=== PATIENT | male | born 1950 | race Caucasian/White ===

== ENCOUNTER 2017-01-27 01:39 | Emergency (ER) | payer BC ==
[2017-01-27 01:56] VITALS: BP 160/99
--- NOTE | 2017-01-27 02:10 | EDM.PDOC ---
ED HPI GENERAL MEDICAL PROBLEM - General Chief Complaint: Bite:Animal, Insect Stated Complaint: TICK BITE Time Seen by Provider: 01/27/17 02:05 Source of Information: Reports: Patient History Limitations: Reports: No Limitations - History of Present Illness INITIAL COMMENTS - FREE TEXT/NARRATIVE: pt has a tick bite on his rt lower leg. Onset: Gradual Duration: Hour(s): Location: Reports: Lower Extremity, Right Associated Symptoms: Reports: No Other Symptoms - Related Data Allergies Allergy/AdvReac Type Severity Reaction Status Date / Time No Known Allergies Allergy Verified 01/27/17 01:49 Home Meds: Home Meds Omeprazole [Omeprazole] 20 mg PO DAILY 07/01/15 [History] buPROPion HCl [Wellbutrin Xl] 150 mg PO BID 07/01/15 [History] Past Medical History Genitourinary History: Reports: Other (See Below) Other Genitourinary History: ED - Infectious Disease History Infectious Disease History: Reports: Chicken Pox, Measles, Mumps - Past Surgical History Other Musculoskeletal Surgeries/Procedures:: cortisone shots in back Social & Family History - Tobacco Use Smoking Status *Q: Current Every Day Smoker Years of Tobacco use: 40 Packs/Tins Daily: 1 Used Tobacco, but Quit: No Second Hand Smoke Exposure: No - Caffeine Use Caffeine Use: Reports: Soda - Alcohol Use Days Per Week of Alcohol Use: 7 Number of Drinks Per Day: 2 Total Drinks Per Week: 14 - Recreational Drug Use Recreational Drug Use: No ED ROS GENERAL - Review of Systems Review Of Systems: See Below Constitutional: Reports: No Symptoms HEENT: Reports: No Symptoms Respiratory: Reports: No Symptoms Cardiovascular: Reports: No Symptoms Endocrine: Reports: No Symptoms GI/Abdominal: Reports: No Symptoms : Reports: No Symptoms Musculoskeletal: Reports: Other (pt has a rash on his rt lower leg. It does itch around it. ) ED EXAM, ANIMAL BITE - Physical Exam Exam: See Below Text/Narrative:: a regular tick was removed from his rt lower leg. This now has a red rash around it that is very itchy. Exam Limited By: No Limitations General Appearance: Alert, Anxious Ears: Normal TMs Nose: Normal Inspection Throat/Mouth: Normal Inspection Head: Atraumatic Neck: Normal Inspection Respiratory/Chest: No Respiratory Distress Cardiovascular: Regular Rate, Rhythm Skin Exam: Other ( pt has a tick bite with a red itchy rash around the site) Course - Vital Signs Last Recorded V/S: Last Vital Signs Temp 35.7 C 01/27/17 01:51 Pulse 104 H 01/27/17 01:51 Resp 16 01/27/17 01:51 BP 160/99 H 01/27/17 01:51 Pulse Ox 97 01/27/17 01:51 Departure - Departure Time of Disposition: 02:08 Disposition: Home, Self-Care 01 Condition: Fair Clinical Impression: Tick bite - Discharge Information Forms: ED Department Discharge Care Plan Goals: doxycyline 100mg bid for 5 days, kenalog cream apply to the rash
== END 2017-01-27 02:20 | disposition home or self-care (01) ==
LOC: JP.ED 01:39
DX: S80.861A Insect bite (nonvenomous), right lower leg, initial encounter (principal); F17.210 Nicotine dependence, cigarettes, uncomplicated; Z79.899 Other long term (current) drug therapy; W57.XXXA Bitten or stung by nonvenomous insect and other nonvenomous arthropods, initial encounter
CPT/HCPCS: 99283

== ENCOUNTER 2019-11-29 16:45 | Emergency (ER) | payer MEDICARE ==
--- NOTE | 2019-11-29 18:12 | EDM.PDOC ---
ED HPI GENERAL MEDICAL PROBLEM - General Chief Complaint: General Stated Complaint: INCISION INFECTED Time Seen by Provider: 11/29/19 18:00 Source of Information: Reports: Patient, Old Records, RN History Limitations: Reports: No Limitations - History of Present Illness INITIAL COMMENTS - FREE TEXT/NARRATIVE: 69 yo male had an umbilical hernia repaired over a month ago at [facility] and recently did some straining for a constipated stool and now has more bulging around his hernia site. He is not having any pain. He called the clinic today as he wanted someone to look at it and was told to go to the ER. No nausea or vomiting or change of appetite. Onset: Gradual Duration: Day(s):, Getting Worse Location: Reports: Abdomen Quality: Reports: Other (no pain) Severity: Mild Improves with: Reports: Other (lying) Worsens with: Reports: Other (standing or straining) Context: Reports: Other (see HPI) Associated Symptoms: Reports: No Other Symptoms Treatments TRANSMISSION ASSEMBLER: Reports: Other (see below) (none) Abdominal Pain Score (Numeric/FACES): 2 - Related Data Allergies Allergy/AdvReac Type Severity Reaction Status Date / Time No Known Allergies Allergy Verified 11/29/19 17:20 Home Meds: Home Meds Aspirin [Aspirin EC] 325 mg PO DAILY 11/29/19 [History] Omeprazole 20 mg PO DAILY 11/29/19 [History] Potassium Gluconate [Potassium] 99 mg PO DAILY 11/29/19 [History] Sennosides/Docusate Sodium [Senna-Docusate Sodium Tablet] 1 each PO BID [History] Sildenafil [Revatio] 20 mg PO ASDIRECTED PRN 11/29/19 [History] buPROPion HCL [Bupropion HCl Sr] 150 mg PO BID 11/29/19 [History] Past Medical History Cardiovascular History: Reports: Hypertension Gastrointestinal History: Reports: GERD, Other (See Below) Other Gastrointestinal History: umbilical hernia Genitourinary History: Reports: Prostate Disorder, Other (See Below) Other Genitourinary History: ED Psychiatric History: Reports: Addiction, Depression Other Psychiatric History: etoh Oncologic (Cancer) History: Reports: Prostate - Infectious Disease History Infectious Disease History: Reports: Chicken Pox, Measles, Mumps - Past Surgical History GI Surgical History: Reports: Hernia Repair/Other Male Surgical History: Reports: Prostatectomy Other Musculoskeletal Surgeries/Procedures:: cortisone shots in back Social & Family History - Tobacco Use Smoking Status *Q: Current Every Day Smoker Years of Tobacco use: 40 Packs/Tins Daily: 1 - Caffeine Use Caffeine Use: Reports: Soda - Recreational Drug Use Recreational Drug Use: No ED ROS GENERAL - Review of Systems Review Of Systems: See Below Constitutional: Reports: No Symptoms HEENT: Reports: No Symptoms Respiratory: Reports: No Symptoms Cardiovascular: Reports: No Symptoms GI/Abdominal: Reports: Other (bulge of umbilical area). Denies: Abdominal Pain : Reports: No Symptoms Musculoskeletal: Reports: No Symptoms Skin: Reports: No Symptoms Neurological: Reports: No Symptoms ED EXAM, GENERAL - Physical Exam Exam: See Below Exam Limited By: No Limitations General Appearance: Alert, WD/WN, No Apparent Distress Eye Exam: Bilateral Eye: Normal Inspection Ears: Normal External Exam, Normal Canal, Hearing Grossly Normal Ear Exam: Bilateral Ear: Auricle Normal, Canal Normal Nose: Normal Inspection, No Blood Throat/Mouth: Normal Inspection, Normal Lips, Normal Oropharynx, Normal Voice, No Airway Compromise Head: Atraumatic, Normocephalic Neck: Normal Inspection Respiratory/Chest: No Respiratory Distress, Lungs Clear, Normal Breath Sounds, No Accessory Muscle Use Cardiovascular: Regular Rate, Rhythm, No Edema GI/Abdominal: Normal Bowel Sounds, Soft, Non-Tender, No Distention, Hernia ( umbilical) Extremities: Normal Inspection Neurological: Alert, Oriented, CN II-XII Intact, Normal Cognition, No Motor/ Sensory Deficits Psychiatric: Normal Affect, Normal Mood Skin Exam: Warm, Dry, Intact, Normal Color, No Rash, Other (surgical wound well healed.) Course - Vital Signs Last Recorded V/S: Last Vital Signs Temp 36.1 C 11/29/19 17:21 Pulse 125 H 11/29/19 17:21 Resp 16 11/29/19 17:21 BP 149/78 H 11/29/19 17:21 Pulse Ox 97 11/29/19 17:21 Departure - Departure Time of Disposition: 18:19 Disposition: Home, Self-Care 01 Condition: Good Clinical Impression: Umbilical hernia Qualifiers: Obstruction and gangrene presence: without obstruction or gangrene Qualified Code(s): K42.9 - Umbilical hernia without obstruction or gangrene - Discharge Information *PRESCRIPTION DRUG MONITORING PROGRAM REVIEWED*: No *COPY OF PRESCRIPTION DRUG MONITORING REPORT IN PATIENT MARITZA: No Referrals: Sherif Gonzalez MD [Primary Care Provider] - Additional Instructions: Keep stool soft with ample fluids and fiber to prevent straining. Avoid heavy lifting. Discuss your recurrent hernia with your surgeon, expect you will have to live with this until after this COVID-19 issue is resolved. Return for abdominal pain with vomiting. Sepsis Event Note - Evaluation Sepsis Screening Result: No Definite Risk - Focused Exam Vital Signs: Vital Signs Temp Pulse Resp BP Pulse Ox 11/29/19 17:21 36.1 C 125 H 16 149/78 H 97 11/29/19 17:06 36.1 C 125 H 16 149/78 H 97 Date Exam was Performed: 11/29/19 Time Exam was Performed: 18:07
[2019-11-29 18:13] VITALS: BP 149/78; PULSE 125
== END 2019-11-29 18:36 | disposition home or self-care (01) ==
LOC: JP.ED 16:45
DX: K42.9 Umbilical hernia without obstruction or gangrene (principal); K21.9 Gastro-esophageal reflux disease without esophagitis; F32.9 Major depressive disorder, single episode, unspecified; F17.210 Nicotine dependence, cigarettes, uncomplicated; Z79.899 Other long term (current) drug therapy
CPT/HCPCS: 99282; 99283

== ENCOUNTER 2019-12-07 06:29 | Day surgery (SDC) | payer MEDICARE ==
[2019-12-07] MEDS ORDERED: Bupivacaine 0.5%/EPINEPHrine 1:200,000 50 ML MDV ONE (06:30)
[2019-12-07] MEDS ORDERED: Acetaminophen 500 MG Tab PO ONE (07:00)
[2019-12-07] MEDS ORDERED: Propofol 200 MG/20 ML SDV ONE (07:01)
[2019-12-07] MEDS ORDERED: Rocuronium 50 MG/5 ML Vial ONE (07:01)
[2019-12-07] MEDS ORDERED: Dexamethasone 4 MG/ML SDV ONE (07:01)
[2019-12-07] MEDS ORDERED: Neostigmine Methylsulfate 1 MG/ML 5 ML Syringe ONE (07:01)
[2019-12-07] MEDS ORDERED: Succinylcholine 200 MG/10 ML MDV ONE (07:01)
[2019-12-07] MEDS ORDERED: Glycopyrrolate 0.2 MG/ML 5 ML MDV ONE (07:01)
[2019-12-07] MEDS ORDERED: fentaNYL 250 MCG/5 ML SDV ONE (07:01)
[2019-12-07] MEDS ORDERED: Ondansetron 4 MG/2 ML SDV ONE (07:01)
[2019-12-07] MEDS ORDERED: ceFAZolin 2 GM in Premix Bag 1 BAG IV ONE (07:15)
[2019-12-07] MEDS ORDERED: Dextrose 5%-Lactated Ringers 1,000 ML IV SCH (07:15)
[2019-12-07] MEDS ORDERED: Albuterol/Ipratropium 3.0-0.5 MG/3 ML Neb Soln NEB ONE (07:50)
[2019-12-07] MEDS ORDERED: Sugammadex Sodium 200 MG/2 ML VIAL ONE (09:24)
[2019-12-07] MEDS ORDERED: Sulfamethoxazole/Trimethoprim 800-160 MG Tab PO ONE (10:20)
[2019-12-07 13:50] VITALS: BP 130/73; PULSE 92
--- NOTE | 2019-12-10 11:19 | CR ---
CHEST: 2 view CLINICAL HISTORY:Smoker, preop COMPARISON:None FINDINGS: The heart size, pulmonary vascularity and hilar structures are normal. No infiltrate effusion or pneumothorax is seen. There are atherosclerotic changes in the aorta. IMPRESSION: No acute cardiopulmonary process.
--- NOTE | 2019-12-19 16:18 | OR ---
DATE OF PROCEDURE: 12/07/2019 SURGEON: Branden Linares MD PREOPERATIVE DIAGNOSIS: Recurrent incisional hernia with intermittent drainage of intraperitoneal fluid. POSTOPERATIVE DIAGNOSES: 1. Incarcerated recurrent incisional hernia. 2. Inflammatory intraabdominal fluid collection extending into hernia sac. OPERATIVE PROCEDURE: Exploration of abdominal wall and underlying intraabdominal space with: 1. Drainage of inflammatory intraabdominal fluid collection extending into hernia (40664). 2. Repair of recurrent incarcerated incisional hernia (71735). ANESTHESIA: General. RITUAL CIRCUMCISER: Naya Zaragoza PA-C INDICATIONS FOR PROCEDURE: This is a 69-year-old male presenting with a recurrent hernia and this is located in the supraumbilical area. The hernia had been emergently repaired at the time of robotic prostatectomy and now has recurred. This has resulted in quite a bit of fluid accumulation within the hernia and has had at least on two occasions spontaneous drainage of fluid from that area and the skin is quite excoriated and now the plan is to proceed with exploration of the area. We will excise the excoriated skin and then repair the hernia as indicated. This is a case that we would likely not use any mesh due to there probably being some underlying contamination of the hernia site based on the history and appearance of the overlying skin. Potential risks of the procedure including bleeding, infection, recurrence of the hernia were all reviewed, and the patient wishes to proceed. DETAILS OF PROCEDURE: The patient was taken to the operating room and placed in a supine position. After general endotracheal anesthesia was induced, the abdomen was prepped and draped. Elliptical incision with vertical orientation was then made in the supraumbilical area excising the excoriated skin. As one entered the hernia sac, quite a bit of fluid was present. This contained some incarcerated omentum within it as well. A portion of this omentum was excised and the base was tied off with a 3-0 Vicryl suture ligature. The fluid itself was somewhat cloudy and there was an obvious element of peritonitis located within the hernia sac as we extended from the intraabdominal location into the area of herniation. The hernia sac was then excised. Cultures of the fluid had been obtained at that point as well, and once the hernia sac was excised and the omentum partially removed as noted above, the area was irrigated with a meropenem and Zyvox containing saline solution. A primary fascial closure with a transverse orientation was then accomplished with interrupted sutures of 0 Vicryl stitch. Once all sutures were placed, these were then tied. This appeared satisfactorily close off the hernia at the fascia level. Subcutaneous tissue was then approximated with 2 layers of 3-0 and 4-0 Vicryl stitch deep and then shaye for the skin. Bilateral transversus abdominis plane blocks were then placed, and the patient taken to the recovery room in satisfactory condition. Physician sales assistant institutional sales, Naya Zaragoza, played an essential role in assisting in this case helping to position the patient, retract structures as needed, as well as suturing and cutting sutures when indicated. Her presence improved patient safety and decreased the operative time. Branden Linares MD /[id number]
== END 2019-12-07 11:30 | disposition home or self-care (01) ==
LOC: JP.SDS 06:29
PROVIDERS: ATTEND Surgery
DX: K43.0 Incisional hernia with obstruction, without gangrene (principal); K65.9 Peritonitis, unspecified; K21.9 Gastro-esophageal reflux disease without esophagitis; I73.9 Peripheral vascular disease, unspecified; E87.1 Hypo-osmolality and hyponatremia; N52.9 Male erectile dysfunction, unspecified; L30.9 Dermatitis, unspecified; I10 Essential (primary) hypertension; F32.9 Major depressive disorder, single episode, unspecified; R25.1 Tremor, unspecified; D64.9 Anemia, unspecified; F10.11 Alcohol abuse, in remission; F17.210 Nicotine dependence, cigarettes, uncomplicated; Z79.82 Long term (current) use of aspirin; Z79.899 Other long term (current) drug therapy; Z98.890 Other specified postprocedural states; Z85.46 Personal history of malignant neoplasm of prostate; Z90.79 Acquired absence of other genital organ(s)
CPT/HCPCS: 49020; 49566; 71046; 87070; 87075; 87205; 88302; 94640; A9270; J0171; J0330; J0690; J1100; J2405; J2704; J2710; J2795; J3010; J3490; J7050; J7121; J7620-GY

== ENCOUNTER 2020-03-11 06:59 | Day surgery (SDC) | payer MEDICARE ==
[~2020-03-11 06:59] MED LIST: Bupivacaine 0.5%/EPINEPHrine 1:200,000 50 ML MDV ONE; Meropenem 500 MG SDV ONE
[2020-03-11] MEDS ORDERED: ceFAZolin 2 GM in Premix Bag 1 BAG IV ONE (07:45)
[2020-03-11] MEDS ORDERED: Dextrose 5%-Lactated Ringers 1,000 ML IV SCH (07:45)
[2020-03-11] MEDS ORDERED: Succinylcholine 200 MG/10 ML MDV ONE (08:20)
[2020-03-11] MEDS ORDERED: Propofol 200 MG/20 ML SDV ONE (08:20)
[2020-03-11] MEDS ORDERED: Rocuronium 50 MG/5 ML Vial ONE (08:20)
[2020-03-11] MEDS ORDERED: Dexamethasone 4 MG/ML SDV ONE (08:20)
[2020-03-11] MEDS ORDERED: Neostigmine Methylsulfate 1 MG/ML 5 ML Syringe ONE (08:20)
[2020-03-11] MEDS ORDERED: Ondansetron 4 MG/2 ML SDV ONE (08:20)
[2020-03-11] MEDS ORDERED: Glycopyrrolate 0.2 MG/ML 5 ML MDV ONE (08:20)
[2020-03-11] MEDS ORDERED: fentaNYL 250 MCG/5 ML SDV ONE ×2 (08:21→08:57)
[2020-03-11] MEDS ORDERED: Lidocaine 2% Jelly 10 ML Urojet ONE (08:56)
[2020-03-11] MEDS ORDERED: Lactated Ringers 1,000 ML ONE (09:28)
[2020-03-11] MEDS ORDERED: hydrOXYzine HCL 100 MG/2 ML SDV IM ONE (11:24)
[2020-03-11] MEDS ORDERED: Tamsulosin 0.4 MG Cap.ER PO ONE ×2 (11:30→12:30)
[2020-03-11] MEDS ORDERED: HYDROmorphone 1 MG/ML Syringe IV PRN (12:00)
[2020-03-11] MEDS ORDERED: hydrOXYzine HCL 100 MG/2 ML SDV IM PRN (12:00)
[2020-03-11] MEDS ORDERED: HYDROmorphone 0.5 MG/0.5 ML Syringe IVPUSH PRN (12:00)
[2020-03-11] MEDS: Cyclobenzaprine 10 MG Tab PO PRN (12:27)
[2020-03-11] MEDS: Acetaminophen 325 MG Tab PO SCH ×3 (12:27→23:08)
[2020-03-11] MEDS ORDERED: Ketamine 500 MG/5 ML MDV IV SCH (13:00)
[2020-03-11] MEDS ORDERED: MVI, Adult with Vitamin K 10 ML, Chromium/Copper/Mang/Selen/Zn 1 ML, Thiamine 100 MG in... IV ONE ×4 (13:00)
[2020-03-11] MEDS ORDERED: Ketamine 50 MG in Sodium Chloride 0.9% 49.5 ML IV SCH (13:00)
[2020-03-11] MEDS: Pantoprazole 40 MG Tab.CR PO SCH (14:35)
[2020-03-11] MEDS: ceFAZolin 2 GM in Premix Bag 1 BAG IV SCH ×2 (16:02→23:08)
[2020-03-11] MEDS: oxyCODONE 5 MG Tab PO PRN ×2 (16:33→20:31)
[2020-03-11] MEDS: Naproxen 250 MG Tab PO SCH (17:52)
[2020-03-11] MEDS: buPROPion 150 MG Tab.SR PO SCH (20:31)
[2020-03-11] MEDS ORDERED: Tamsulosin 0.4 MG Cap.ER PO SCH (21:00)
[2020-03-11] MEDS: Dextrose 5%-Lactated Ringers 1,000 ML IV SCH (21:49)
[2020-03-12] MEDS: oxyCODONE 5 MG Tab PO PRN ×3 (02:50→11:05)
[2020-03-12] MEDS: Dextrose 5%-Lactated Ringers 1,000 ML IV SCH (05:07)
[2020-03-12] MEDS: Acetaminophen 325 MG Tab PO SCH ×2 (05:36→11:06)
[2020-03-12] MEDS ORDERED: Furosemide 20 MG/2 ML VIAL IVPUSH ONE (06:43)
[2020-03-12] MEDS: ceFAZolin 2 GM in Premix Bag 1 BAG IV SCH (07:24)
[2020-03-12] MEDS: Naproxen 250 MG Tab PO SCH (07:24)
[2020-03-12] MEDS: Pantoprazole 40 MG Tab.CR PO SCH (07:24)
[2020-03-12] MEDS: buPROPion 150 MG Tab.SR PO SCH (08:33)
[2020-03-12] MEDS ORDERED: Aspirin 325 MG Tab.EC PO SCH (09:00)
[2020-03-12] MEDS: Cyclobenzaprine 10 MG Tab PO PRN (09:34)
--- NOTE | 2020-03-12 10:38 | OR ---
DATE OF PROCEDURE: 03/11/2020 SURGEON: Branden Linares MD PREOPERATIVE DIAGNOSES: 1. Recurrent incisional and umbilical hernia. 2. Newly identified incisional hernia in the right lower quadrant. POSTOPERATIVE DIAGNOSES: 1. Incarcerated recurrent incisional and umbilical hernias. 2. Incarcerated nonrecurrent incisional hernia containing incarcerated cecum. 3. Urethral stricture. OPERATIVE PROCEDURES: 1. Urethral dilation with placement of Carnes catheter (34471, [id number]). 2. Exploratory laparotomy with: a. Repair of incarcerated recurrent incisional hernia with mesh (89427). b. Repair of incarcerated recurrent umbilical hernia with mesh (49044). c. Repair of incarcerated nonrecurrent incisional hernia with mesh (82918). d. Repair of cecum injury secondary to incarceration within right lower quadrant hernia (41622). e. Placement of Vicryl mesh to limit recurrent adhesion formation between pelvic and abdominal wall and underlying viscera (85633). ANESTHESIA: General. OTR REFRIGERATED CDL TRUCK DRIVER: Naya Zaragoza PA-C INDICATIONS FOR PROCEDURE: This is a 69-year-old presenting with a recurrent incisional hernia. This also involves the adjacent umbilicus. He is also noted to have newly identified hernia in the trocar site in the right lower quadrant, which will also be repaired at this time. Mesh repair will be planned. Potential risks including bleeding, infection, injury to underlying viscera, problems with mesh becoming infected or the hernias recurring were all reviewed, and the patient wishes to proceed. DETAILS OF PROCEDURE: The patient was taken to the operating room, and after general endotracheal anesthesia was induced, initially a Carnes catheter attempted to be placed. The patient is status post prostatectomy and even 8-Upper Sorbian Carnes catheter could not initially be placed. Given this, Filiform were then placed until one of these passed into the area of bladder. Over this, the urethral stricture was progressively dilated up to a 14-Upper Sorbian size. This allowed at that point removal of the Filiform dilator and a 10-Upper Sorbian Carnes catheter was able to be passed into the urinary bladder with good flow of urine being confirmed. Of note, after laparoscopic phase of the procedure was initiated, the urinary bladder was inspected and found to be well decompressed. The abdomen was now prepped and draped, and in the left lateral abdomen, a transverse incision was made and peritoneal cavity entered under direct vision with an Optiview trocar, inflated 15 mmHg pressure with CO2. Laparoscope was reinserted. No underlying trocar insertion site injuries were seen. Following this, 5 mm trocar was placed in the left mid abdomen and left upper abdomen and the areas of herniation were identified. The combined umbilical, incisional recurrent hernia, and periumbilical area containing some incarcerated omentum. Of note, the newly identified hernia in the right lower quadrant contained a portion of the cecal wall in a Benavides's type hernia configuration. Additionally, the area of the adherence of the hernia in the right lower quadrant and the cecum were taken down. This was associated with some thinning and chronic injury to the wall of the cecum which was felt best treated by subsequent repair. At that point, then the omental adhesions to the recurrent incisional and umbilical hernias were taken down as well in order to facilitate more stable abdominal wall. Both hernia sites were then closed within with fascial sutures placed in a transverse orientation closing the fascia primarily at both sites. In the right lateral trocar site hernia, then an 11.[address] mesh was placed. A single suture was placed in the middle of the mesh on a polypropylene side after being soaked in antibiotic-containing saline solution and placed into the intraabdominal location, and a small stab wound overlying the hernia was made, and using suture passer, suture was grasped and pulled up thus pulling the mesh up against the abdominal wall and was fixed circumferentially with some absorbable tacking screws. The larger hernia in the periumbilical area was then repaired with a Ventralight ST mesh, in this case with the balloon positioning system, a 20.3 cm grand traverse was selected, and after being soaked in an antibiotic-containing saline solution, placed in an intraabdominal location. This mesh was then pulled up through small stab wound brining up the inflation catheter. The balloon was then inflated, bringing the mesh up against the abdominal wall. This was then fixed with circumferentially with some absorbable tacking screws. Some of these were not fixing well, and given this, some additional titanium tacking screws were placed in this mesh as well to assure adequate fixation, which at that point appeared to be quite good and the balloon was then deflated and removed. Attention was then taken to the cecal area. The cecum was then brought up at the point of injury and that area then stapled across removing a small edge of the cecum at the repair site. This staple line appeared to be intact. There was no gross spillage or contamination evident. The cecal closure was then reinforced with some fibrin sealant along with omentum being placed over it. A 12-inch square Vicryl mesh was then placed underneath the areas of the mesh placement and down to the pelvic and lower abdominal wall to limit recurrent adhesion formation. The trocars were then sequentially removed because of the patient's quite thin abdominal wall. All of the trocar sites including the 5 mm trocar sites were closed with 0 Vicryl fascial stitches and the skin with 4-0 Vicryl skin stitch. Bilateral transversus and abdominis plane blocks had been placed and the incision was anesthetized with 1% lidocaine as well. The patient was taken to the recovery room in satisfactory condition. There were no evident complications. The catheter will be left in place overnight and the patient will be given some Flomax in order to facilitate hopefully in the morning. Physician assistant loan processor, Naya Zaragoza, played an essential role in assisting in this case, helping to position the patient, retract structures as needed, as well as suturing and cutting sutures when indicated. Her presence improved patient safety and decreased operative time. Branden Linares MD /[id number]
[2020-03-12 10:46] VITALS: BP 186/70; PULSE 81
--- NOTE | 2020-03-12 11:37 | DISCH ---
ADMISSION DIAGNOSES: 1. Incarcerated umbilical hernia. 2. Incarcerated incisional hernia. 3. Hypertension. 4. Gastroesophageal reflux disease. 5. History of prostate cancer. 6. Depression. 7. Chronic alcohol use. 8. Peripheral artery disease with claudication. 9. Erectile dysfunction. DISCHARGE DIAGNOSES: 1. Urethral dilatation, 14-Ukrainian with placement of Carnes catheter 10-Ukrainian. 2. Diagnostic laparoscopy with: a. Repair of incarcerated recurrent incisional hernia and repair of periumbilical hernia. b. Repair of cecum injury secondary to incarceration of hernia. c. Placement of Vicryl mesh. POSTOPERATIVE DIAGNOSES: 1. Urethral stricture. 2. Incarcerated recurrent incisional hernia, periumbilical and umbilical hernia. 3. Incarcerated nonrecurrent incisional hernia, right lower quadrant containing incarcerated cecum. Date of procedure: 03/11/2020. Surgeon: Branden Linares. HISTORY: Gabriel Ponce is a 69-year-old male who presented with above chief complaints. After preoperative evaluation and discussion of possible risks and possible complications, he wished to proceed with surgical procedure. HOSPITAL COURSE: Gabriel had his surgery on 03/11/2020. He had no operative complications with the exception of urethral stricture, which made it difficult for the placement of a Carnes catheter. On postoperative day #1, his Carnes catheter was removed. At the time of dictation, he is waiting to void and will be discharged after he voids. His vital signs are stable. Activity good. Pain is well controlled, and he is able to be discharged to home. PHYSICAL EXAMINATION: GENERAL: Gabriel Ponce is a 69-year-old male. Height is 5 feet 8 inches, weight is 174 pounds. BMI is 26. VITAL SIGNS: TPR; 97, 76, 16, blood pressure 158/86. HEENT: Negative. NECK: Supple. HEART: Regular rate and rhythm. LUNGS: Clear. ABDOMEN: Dressings dry and intact. Pressure dressings are over 2 hernia sites. EXTREMITIES: Without peripheral edema. DISPOSITION: Discharged to home. CONDITION: Stable and improving. FOLLOWUP: Followup appointment with Branden Linares MD, at [facility] on 03/19/2020 at 0815. HOME MEDICATIONS: 1. Flomax 0.4 mg at bedtime, #7. 2. Oxycodone 5 mg every 4 hours p.r.n. pain, #42. 3. Tylenol 650 mg every 6 hours p.r.n. pain. He is to resume home medication of: 1. Aspirin 325 mg daily. 2. Multivitamin 1 tablet daily. 3. Naproxen 220 mg oral twice daily. 4. Omeprazole 20 mg oral daily. 5. Potassium gluconate 550 mg oral daily. 6. Senna S 1 twice daily. 7. Revatio 20 mg oral as directed. 8. Bupropion 150 mg twice daily. DIET: After discharge is regular diet, drink 6 to 8 glasses of water a day. ACTIVITY: No lifting greater than 10 pounds for 6 weeks. He is to ambulate 6 times daily inside his home. DISCHARGE INSTRUCTIONS: Dressing, may remove surgical dressing in a.m. and to place pressure dressing, rolled up Kerlix over both hernia sites, may also use a washcloth, and then place abdominal binder over that for 6 weeks. No lifting more than 10 pounds for [address] for 1 [address] and while on pain medication. Notify provider if any fever, increased pain, swelling, redness, drainage, nausea, or vomiting. OTHER INSTRUCTIONS: Use incentive spirometer 10 times every hour while awake for 1 week.
== END 2020-03-12 13:05 | disposition home or self-care (01) ==
LOC: JP.SDS 06:59 → JP.MS 11:00 → JP.SDS 03-12 13:05
PROVIDERS: ATTEND Surgery
DX: K43.0 Incisional hernia with obstruction, without gangrene (principal); K42.0 Umbilical hernia with obstruction, without gangrene; N35.919 Unspecified urethral stricture, male, unspecified site; I10 Essential (primary) hypertension; K21.9 Gastro-esophageal reflux disease without esophagitis; F32.9 Major depressive disorder, single episode, unspecified; I73.9 Peripheral vascular disease, unspecified; N52.9 Male erectile dysfunction, unspecified; Z79.82 Long term (current) use of aspirin; Z72.89 Other problems related to lifestyle; Z79.899 Other long term (current) drug therapy
CPT/HCPCS: 49561; 49566; 49568; 49587; 88305; 94762; A9270; C1713; C1781; J0171; J0330; J0690; J1100; J1170; J1940; J2020; J2185; J2405; J2704; J2710; J2795; J3010; J3410; J3411; J3490; J7050; J7120; J7121

== ENCOUNTER 2020-04-02 12:16 | Inpatient (IN) | payer MEDICARE ==
--- NOTE | 2020-04-02 12:51 | EDM.PDOC ---
ED HPI GENERAL MEDICAL PROBLEM - General Chief Complaint: Neuro Symptoms/Deficits Stated Complaint: VIA TRI Time Seen by Provider: 04/02/20 12:38 Source of Information: Reports: Patient, EMS, Family, RN Notes Reviewed History Limitations: Reports: No Limitations - History of Present Illness INITIAL COMMENTS - FREE TEXT/NARRATIVE: 70-year-old gentleman presents emergency department today with complaint of seizure-like activity. Earlier today he had an event both arms stiffened lasted less than a minute and then there was a period of approximately 15 minutes where he was confused. EMS services were called state he was confused upon arrival however by the time they delivered him to the emergency department he seemed back to his normal state. His significant other did call the ambulance states he had one event like this yesterday. Does admit to consuming large amount of alcohol states around 10 drinks per day of whiskey. States he feels he is back to his normal state at this time. Declines alcohol detox he has had a rule 25 done which he was set up for alcohol treatment but he elected not to follow through with that. - Related Data Allergies Allergy/AdvReac Type Severity Reaction Status Date / Time No Known Allergies Allergy Verified 04/02/20 12:20 Home Meds: Home Meds Aspirin [Aspirin EC] 325 mg PO DAILY 11/29/19 [History] Omeprazole 20 mg PO DAILY 11/29/19 [History] Potassium Gluconate [Potassium] 550 mg PO DAILY 11/29/19 [History] Sennosides/Docusate Sodium [Senna-Docusate Sodium Tablet] 1 each PO BID 11/29/19 [History] Sildenafil [Revatio] 20 mg PO ASDIRECTED PRN 11/29/19 [History] buPROPion HCL [Bupropion HCl Sr] 150 mg PO BID 11/29/19 [History] Multivitamin [Multivitamins] 1 tab PO DAILY 12/07/19 [History] Naproxen Sodium [Aleve] 220 mg PO BID PRN 12/07/19 [History] Acetaminophen [Tylenol] 650 mg PO Q6H tablet 03/12/20 [Rx] Tamsulosin [Flomax] 0.4 mg PO DAILY 04/02/20 [History] Past Medical History HEENT History: Reports: Other (See Below) Other HEENT History: wears reading glasses Cardiovascular History: Reports: Hypertension, Other (See Below) Other Cardiovascular History: peripheral arterial disease with claudication Gastrointestinal History: Reports: GERD, Other (See Below) Other Gastrointestinal History: umbilical hernia Genitourinary History: Reports: Prostate Disorder, Urinary Incontinence, Other (See Below) Other Genitourinary History: ED Musculoskeletal History: Reports: Back Pain, Chronic Neurological History: Reports: Other (See Below) Other Neuro History: tremor Psychiatric History: Reports: Addiction, Depression Other Psychiatric History: etoh Endocrine/Metabolic History: Reports: Hypokalemia Oncologic (Cancer) History: Reports: Prostate Dermatologic History: Reports: Eczema - Infectious Disease History Infectious Disease History: Reports: Chicken Pox, Measles, Mumps, Shingles - Past Surgical History GI Surgical History: Reports: Colonoscopy, Hernia Repair/Other Male Surgical History: Reports: Prostatectomy Other Musculoskeletal Surgeries/Procedures:: cortisone shots in back, right trigger finger release Social & Family History - Tobacco Use Smoking Status *Q: Current Every Day Smoker Years of Tobacco use: 40 Packs/Tins Daily: 1 - Caffeine Use Caffeine Use: Reports: None - Alcohol Use Days Per Week of Alcohol Use: 7 Number of Drinks Per Day: 20 Total Drinks Per Week: 140 - Recreational Drug Use Recreational Drug Use: No ED ROS GENERAL - Review of Systems Review Of Systems: See Below Constitutional: Reports: No Symptoms HEENT: Reports: No Symptoms Respiratory: Reports: No Symptoms Cardiovascular: Reports: No Symptoms GI/Abdominal: Reports: No Symptoms Neurological: Reports: Seizure ED EXAM, NEURO - Physical Exam Exam: See Below Exam Limited By: No Limitations General Appearance: Alert, WD/WN, No Apparent Distress Eye Exam: Bilateral Eye: Normal Inspection Neck: Normal Inspection, Supple, Non-Tender, Full Range of Motion Respiratory/Chest: No Respiratory Distress, Lungs Clear, Normal Breath Sounds, No Accessory Muscle Use, Chest Non-Tender Cardiovascular: Regular Rate, Rhythm, No Murmur GI/Abdominal: Soft, Non-Tender Neurological: Alert, Normal Mood/Affect, Other (Power is 5 x 5 upper and lower extremities) Course - Vital Signs Last Recorded V/S: Last Vital Signs Temp 97.1 F 04/02/20 12:17 Pulse 116 H 04/02/20 13:39 Resp 22 H 04/02/20 13:39 BP 136/76 04/02/20 13:39 Pulse Ox 92 L 04/02/20 13:39 - Orders/Labs/Meds Orders: Active Orders 24 hr Category Date Time Status MVI, Adult with Vitamin K [Infuvite Adult] 10 ml Med 04/02/20 14:15 Active Thiamine [Vitamin B-1] 200 mg Folic Acid 1 mg Magnesium Sulfate [Magnesium Sulfate 50%] 2 gm Dextrose 5%-Lactated Ringers 1,000 ml IV ONETIME Medication Orders Multivitamins/Minerals 10 ml/Thiamine HCl 200 mg/ Folic Acid 1 mg/ Magnesium Sulfate 2 gm/ Dextrose/Lactated Ringer' s 1,016.2 mls @ 500 mls/hr IV ONETIME ONE Stop: 04/02/20 16:16 Last Admin: 04/02/20 14:09 Dose: 500 mls/hr Documented by: BRIE Labs: Laboratory Tests 04/02/20 04/02/20 04/02/20 Range/Units 12:59 12:59 12:59 WBC 9.8 (4.5-11.0) K/uL RBC 4.07 L (4.30-5.90) M/uL Hgb 12.2 (12.0-15.0) g/dL Hct 35.4 L (40.0-54.0) % MCV 87 (80-98) fL MCH 30 (27-31) pg MCHC 35 (32-36) % Plt Count 400 (150-400) K/uL Neut % (Auto) 64 (36-66) % Lymph % (Auto) 16 L (24-44) % [place] % (Auto) 10 H (2-6) % Eos % (Auto) 10 H (2-4) % Baso % (Auto) 1 (0-1) % Sodium 128 L (140-148) mmol/L Potassium 4.1 (3.6-5.2) mmol/L Chloride 93 L (100-108) mmol/L Carbon Dioxide 26 (21-32) mmol/L Anion Gap 13.1 (5.0-14.0) mmol/L BUN 5 L (7-18) mg/dL Creatinine 0.9 (0.8-1.3) mg/dL Est Cr Clr Drug Dosing 76.00 mL/min Estimated GFR (MDRD) > 60 (>60) Glucose 119 H (74-106) mg/dL Lactic Acid (0.4-2.0) mmol/L Calcium 8.7 (8.5-10.1) mg/dL Phosphorus 3.0 (2.5-4.9) mg/dL Magnesium 1.4 L (1.8-2.4) mg/dL Total Bilirubin 0.8 (0.2-1.0) mg/dL AST 62 H (15-37) U/L ALT 29 (12-78) U/L Alkaline Phosphatase 129 H (46-116) U/L Ammonia 20 (11-32) mmol/L Total Protein 7.1 (6.4-8.2) g/dL Albumin 3.2 L (3.4-5.0) g/dL Globulin 3.9 H (2.3-3.5) g/dL Albumin/Globulin Ratio 0.8 L (1.2-2.2) Ethyl Alcohol mg/dL 04/02/20 04/02/20 Range/Units 12:59 12:59 WBC (4.5-11.0) K/uL RBC (4.30-5.90) M/uL Hgb (12.0-15.0) g/dL Hct (40.0-54.0) % MCV (80-98) fL MCH (27-31) pg MCHC (32-36) % Plt Count (150-400) K/uL Neut % (Auto) (36-66) % Lymph % (Auto) (24-44) % [place] % (Auto) (2-6) % Eos % (Auto) (2-4) % Baso % (Auto) (0-1) % Sodium (140-148) mmol/L Potassium (3.6-5.2) mmol/L Chloride (100-108) mmol/L Carbon Dioxide (21-32) mmol/L Anion Gap (5.0-14.0) mmol/L BUN (7-18) mg/dL Creatinine (0.8-1.3) mg/dL Est Cr Clr Drug Dosing mL/min Estimated GFR (MDRD) (>60) Glucose (74-106) mg/dL Lactic Acid 3.8 H (0.4-2.0) mmol/L Calcium (8.5-10.1) mg/dL Phosphorus (2.5-4.9) mg/dL Magnesium (1.8-2.4) mg/dL Total Bilirubin (0.2-1.0) mg/dL AST (15-37) U/L ALT (12-78) U/L Alkaline Phosphatase (46-116) U/L Ammonia (11-32) mmol/L Total Protein (6.4-8.2) g/dL Albumin (3.4-5.0) g/dL Globulin (2.3-3.5) g/dL Albumin/Globulin Ratio (1.2-2.2) Ethyl Alcohol 8 mg/dL Meds: Medications Generic Name Dose Route Start Last Admin Trade Name Freq PRN Reason Stop Dose Admin Multivitamins/Minerals 10 ml/ 1,016.2 mls @ 500 mls/hr 04/02/20 14:15 04/02/20 14:09 Thiamine HCl 200 mg/ Folic IV 04/02/20 16:16 500 mls/hr Acid 1 mg/ Magnesium Sulfate 2 ONETIME ONE Administration gm/ Dextrose/Lactated Ringer' s Discontinued Medications Generic Name Dose Route Start Last Admin Trade Name Freq PRN Reason Stop Dose Admin Lorazepam 1 mg 04/02/20 12:58 04/02/20 13:07 Ativan IVPUSH 04/02/20 12:59 1 mg ONETIME ONE Administration - Re-Assessments/Exams Free Text/Narrative Re-Assessment/Exam: 04/02/20 13:00 Did have a witnessed seizure-like activity while in the emergency department all 4 extremities were stiffened eyes opened rolled superiorly, moment of confusion after the event lasted several minutes Departure - Departure Time of Disposition: 14:20 Disposition: Admitted As Inpatient 68 Condition: Poor Clinical Impression: Alcohol withdrawal seizure Qualifiers: Complication of substance-induced condition: uncomplicated Qualified Code(s): F10.230 - Alcohol dependence with withdrawal, uncomplicated - Discharge Information Referrals: PCP,None [Primary Care Provider] - Forms: ED Department Discharge Sepsis Event Note (ED) - Evaluation Sepsis Screening Result: Possible Sepsis Risk - Focused Exam Vital Signs: Vital Signs Temp Pulse Resp BP Pulse Ox 04/02/20 13:39 116 H 22 H 136/76 92 L 04/02/20 12:17 97.1 F 113 H 23 H 159/82 H 96 - My Orders Last 24 Hours: My Active Orders 04/02/20 14:15 MVI, Adult with Vitamin K [Infuvite Adult] 10 ml Thiamine [Vitamin B-1] 200 mg Folic Acid 1 mg Magnesium Sulfate [Magnesium Sulfate 50%] 2 gm Dextrose 5%- Lactated Ringers 1,000 ml IV ONETIME - Assessment/Plan Last 24 Hours: My Active Orders 04/02/20 14:15 MVI, Adult with Vitamin K [Infuvite Adult] 10 ml Thiamine [Vitamin B-1] 200 mg Folic Acid 1 mg Magnesium Sulfate [Magnesium Sulfate 50%] 2 gm Dextrose 5%- Lactated Ringers 1,000 ml IV ONETIME Plan: Assessment Acuity = acute Site and laterality = seizures generalized Etiology = alcohol Manifestations = none Location of injury = Home Lab values = CBC unremarkable sodium low at 128 consistent hyponatremia lactic acid elevated 3.8 consistent lactic acidosis magnesium low at 1.4 consistent hypomagnesia AST elevated 62 consistent with elevated liver enzymes alcohol is at 8 CT scan shows age-related atrophy otherwise no acute process Plan Call discussed case with hospitalist on-call at 1400 he kindly agreed to come and evaluate the patient emergency department for admission This note was dictated using [employer] voice recognition software please call with any questions on syntax or grammar.
[2020-04-02] MEDS ORDERED: LORazepam 2 MG/ML SDV IVPUSH ONE (12:58)
[2020-04-02] MEDS ORDERED: MVI, Adult with Vitamin K 10 ML, Thiamine 200 MG, Folic Acid 1 MG, Magnesium Sulfate 2 ... IV ONE ×10 (13:40→14:15)
--- NOTE | 2020-04-02 13:55 | CT ---
Head wo Cont CLINICAL HISTORY: First time seizure COMPARISON: None TECHNIQUE: Transverse scans were obtained from the base of the skull through the vertex without IV contrast on a multislice, multidetector CT scanner. Auto dosage reduction and iterative reconstruction techniques employed. FINDINGS: No focal abnormal parenchymal density is identified. There is no mass effect, hemorrhage, or extraaxial collection. The basal cisterns and sulci over the convexities are prominent. The ventricles are prominent. There is some mild subcortical and periventricular lucency IMPRESSION: Age-related atrophy Chronic ischemic microvascular changes No acute intracranial findings
--- NOTE | 2020-04-02 15:06 | PCM.HP.2 ---
H&P History of Present Illness - General Date of Service: 04/02/20 Admit Problem/Dx: Admission Diagnosis/Problem Admission Diagnosis/Problem Seizure Source of Information: Patient, Family, Provider, RN Notes Reviewed History Limitations: Reports: No Limitations - History of Present Illness Initial Comments - Free Text/Narative: Mr. Ponce is a 70-year-old gentleman who was admitted through the emergency department for management of seizures and alcohol withdrawal. He has a longstanding history of daily alcohol intake of at least 750 mL/day. 2 days ago his noted jerking movement of his right upper extremity and then he became very weak and lethargic. He really has not tapered back on his alcohol use over the past few days. He had a second episode this morning at home with a generalized tonic-clonic seizure. And a third episode that was witnessed in the emergency department and also felt to be consistent with a tonic-clonic generalized seizure. He denies any previous history of seizures and there is been no recent history of head injury. CT scan of the head without contrast was obtained and is unremarkable. He denies any other significant neurologic symptoms. He is felt to be experiencing alcohol withdrawal today and his alcohol intake thus far today has been fairly minimal. - Related Data Allergies/Adverse Reactions: Allergies Allergy/AdvReac Type Severity Reaction Status Date / Time No Known Allergies Allergy Verified 04/02/20 12:20 Home Medications: Home Meds Aspirin [Aspirin EC] 325 mg PO DAILY 11/29/19 [History] Omeprazole 20 mg PO DAILY 11/29/19 [History] Potassium Gluconate [Potassium] 550 mg PO DAILY 11/29/19 [History] Sennosides/Docusate Sodium [Senna-Docusate Sodium Tablet] 1 each PO BID 11/29/19 [History] Sildenafil [Revatio] 20 mg PO ASDIRECTED PRN 11/29/19 [History] buPROPion HCL [Bupropion HCl Sr] 150 mg PO BID 11/29/19 [History] Multivitamin [Multivitamins] 1 tab PO DAILY 12/07/19 [History] Naproxen Sodium [Aleve] 220 mg PO BID PRN 12/07/19 [History] Acetaminophen [Tylenol] 650 mg PO Q6H tablet 03/12/20 [Rx] Tamsulosin [Flomax] 0.4 mg PO DAILY 04/02/20 [History] Past Medical History HEENT History: Reports: Other (See Below) Other HEENT History: wears reading glasses Cardiovascular History: Reports: Hypertension, Other (See Below) Other Cardiovascular History: peripheral arterial disease with claudication Gastrointestinal History: Reports: GERD, Other (See Below) Other Gastrointestinal History: umbilical hernia Genitourinary History: Reports: Prostate Disorder, Urinary Incontinence, Other (See Below) Other Genitourinary History: ED Musculoskeletal History: Reports: Back Pain, Chronic Neurological History: Reports: Other (See Below) Other Neuro History: tremor Psychiatric History: Reports: Addiction, Depression Other Psychiatric History: etoh Endocrine/Metabolic History: Reports: Hypokalemia Oncologic (Cancer) History: Reports: Prostate Dermatologic History: Reports: Eczema - Infectious Disease History Infectious Disease History: Reports: Chicken Pox, Measles, Mumps, Shingles - Past Surgical History GI Surgical History: Reports: Colonoscopy, Hernia Repair/Other Male Surgical History: Reports: Prostatectomy Other Musculoskeletal Surgeries/Procedures:: cortisone shots in back, right trigger finger release Social & Family History - Tobacco Use Smoking Status *Q: Current Every Day Smoker Years of Tobacco use: 40 Packs/Tins Daily: 1 - Caffeine Use Caffeine Use: Reports: None - Alcohol Use Days Per Week of Alcohol Use: 7 Number of Drinks Per Day: 20 Total Drinks Per Week: 140 - Recreational Drug Use Recreational Drug Use: No H&P Review of Systems - Review of Systems: Review Of Systems: See Below General: Reports: No Symptoms HEENT: Reports: No Symptoms Pulmonary: Reports: No Symptoms Cardiovascular: Reports: No Symptoms Gastrointestinal: Reports: No Symptoms Genitourinary: Reports: No Symptoms Musculoskeletal: Reports: No Symptoms Skin: Reports: No Symptoms Psychiatric: Reports: No Symptoms Neurological: Reports: Seizure, Tremors. Denies: Confusion, Dizziness, Headache, Numbness, Paresthesia, Syncope, Trouble Speaking, Difficulty Walking, Weakness Hematologic/Lymphatic: Reports: No Symptoms Immunologic: Reports: No Symptoms Exam - Exam Exam: See Below - Vital Signs Vital Signs: Last Vital Signs Temp 97.1 F 04/02/20 12:17 Pulse 116 H 04/02/20 13:39 Resp 22 H 04/02/20 13:39 BP 136/76 04/02/20 13:39 Pulse Ox 92 L 04/02/20 13:39 Weight: 180 lb - Exam Quality Assessment: DVT Prophylaxis General: Alert, Oriented, Cooperative HEENT: Conjunctiva Clear, Hearing Intact, Normal Nasal Septum, Posterior Pharynx Clear, Pupils Equal. No: Mucosa Moist & [place] Neck: Supple, Trachea Midline, +2 Carotid Pulse wo Bruit Lungs: Clear to Auscultation, Normal Respiratory Effort, Decreased Breath Sounds Cardiovascular: Regular Rhythm, Normal S1, Normal S2, Tachycardia. No: Systolic Murmur, Diastolic Murmur GI/Abdominal Exam: Soft, Non-Tender, No Organomegaly, No Distention, Other (Umbilical hernia) Back Exam: Normal Inspection, Full Range of Motion Extremities: Non-Tender, No Pedal Edema Skin: Warm, Dry, Intact Neurological: Cranial Nerves Intact, Strength Equal Bilateral, Normal Speech, Normal Tone, Sensation Intact. No: Focal Deficit Neuro Extensive - Mental Status: Alert, Oriented x3, Normal Mood/Affect, Normal Cognition, Memory Intact - Patient Data Lab Results Last 24 hrs: Laboratory Results - last 24 hr 04/02/20 04/02/20 04/02/20 Range/Units 12:59 12:59 12:59 WBC 9.8 (4.5-11.0) K/uL RBC 4.07 L (4.30-5.90) M/uL Hgb 12.2 (12.0-15.0) g/dL Hct 35.4 L (40.0-54.0) % MCV 87 (80-98) fL MCH 30 (27-31) pg MCHC 35 (32-36) % Plt Count 400 (150-400) K/uL Neut % (Auto) 64 (36-66) % Lymph % (Auto) 16 L (24-44) % [place] % (Auto) 10 H (2-6) % Eos % (Auto) 10 H (2-4) % Baso % (Auto) 1 (0-1) % Sodium 128 L (140-148) mmol/L Potassium 4.1 (3.6-5.2) mmol/L Chloride 93 L (100-108) mmol/L Carbon Dioxide 26 (21-32) mmol/L Anion Gap 13.1 (5.0-14.0) mmol/L BUN 5 L (7-18) mg/dL Creatinine 0.9 (0.8-1.3) mg/dL Est Cr Clr Drug Dosing 76.00 mL/min Estimated GFR (MDRD) > 60 (>60) Glucose 119 H (74-106) mg/dL Lactic Acid (0.4-2.0) mmol/L Calcium 8.7 (8.5-10.1) mg/dL Phosphorus 3.0 (2.5-4.9) mg/dL Magnesium 1.4 L (1.8-2.4) mg/dL Total Bilirubin 0.8 (0.2-1.0) mg/dL AST 62 H (15-37) U/L ALT 29 (12-78) U/L Alkaline Phosphatase 129 H (46-116) U/L Ammonia 20 (11-32) mmol/L Total Protein 7.1 (6.4-8.2) g/dL Albumin 3.2 L (3.4-5.0) g/dL Globulin 3.9 H (2.3-3.5) g/dL Albumin/Globulin Ratio 0.8 L (1.2-2.2) Ethyl Alcohol mg/dL 04/02/20 04/02/20 Range/Units 12:59 12:59 WBC (4.5-11.0) K/uL RBC (4.30-5.90) M/uL Hgb (12.0-15.0) g/dL Hct (40.0-54.0) % MCV (80-98) fL MCH (27-31) pg MCHC (32-36) % Plt Count (150-400) K/uL Neut % (Auto) (36-66) % Lymph % (Auto) (24-44) % [place] % (Auto) (2-6) % Eos % (Auto) (2-4) % Baso % (Auto) (0-1) % Sodium (140-148) mmol/L Potassium (3.6-5.2) mmol/L Chloride (100-108) mmol/L Carbon Dioxide (21-32) mmol/L Anion Gap (5.0-14.0) mmol/L BUN (7-18) mg/dL Creatinine (0.8-1.3) mg/dL Est Cr Clr Drug Dosing mL/min Estimated GFR (MDRD) (>60) Glucose (74-106) mg/dL Lactic Acid 3.8 H (0.4-2.0) mmol/L Calcium (8.5-10.1) mg/dL Phosphorus (2.5-4.9) mg/dL Magnesium (1.8-2.4) mg/dL Total Bilirubin (0.2-1.0) mg/dL AST (15-37) U/L ALT (12-78) U/L Alkaline Phosphatase (46-116) U/L Ammonia (11-32) mmol/L Total Protein (6.4-8.2) g/dL Albumin (3.4-5.0) g/dL Globulin (2.3-3.5) g/dL Albumin/Globulin Ratio (1.2-2.2) Ethyl Alcohol 8 mg/dL Result Diagrams: 04/02/20 12:59 04/02/20 12:59 Sepsis Event Note - Evaluation Sepsis Screening Result: Possible Sepsis Risk - Focused Exam Vital Signs: Vital Signs Temp Pulse Resp BP Pulse Ox 04/02/20 13:39 116 H 22 H 136/76 92 L 04/02/20 12:17 97.1 F 113 H 23 H 159/82 H 96 *Q Meaningful Use (ADM) - VTE Risk Assess *Q Each Risk Factor Represents 1 Point: Obesity ( BMI > 25 kg/m2), Abnormal Pulmonary Function (COPD) Total Score 1 Point Risk Factors: 2 Each Risk Factor Represents 2 Points: Age 60 - 74 Years Total Score 2 Point Risk Factors: 2 Each Risk Factor Represents 3 Points: None Total Score 3 Point Risk Factors: 0 Each Risk Factor Represents 5 Points: None Total Score 5 Point Risk Factors: 0 Venous Thromboembolism Risk Factor Score *Q: 4 Problem List Initiated/Reviewed/Updated: Yes Orders Last 24hrs: Active Orders 24 hr Category Date Time Status Patient Status Manage Transfer [TRANSFER] Routine ADT 04/02/20 14:57 Ordered MVI, Adult with Vitamin K [Infuvite Adult] 10 ml Med 04/02/20 14:15 Active Thiamine [Vitamin B-1] 200 mg Folic Acid 1 mg Magnesium Sulfate [Magnesium Sulfate 50%] 2 gm Dextrose 5%-Lactated Ringers 1,000 ml IV ONETIME Resuscitation Status Routine Resus Stat 04/02/20 15:00 Ordered Medication Orders Multivitamins/Minerals 10 ml/Thiamine HCl 200 mg/ Folic Acid 1 mg/ Magnesium Sulfate 2 gm/ Dextrose/Lactated Ringer' s 1,016.2 mls @ 500 mls/hr IV ONETIME ONE Stop: 04/02/20 16:16 Last Admin: 04/02/20 14:09 Dose: 500 mls/hr Documented by: BRIE Assessment/Plan Comment:: ASSESSMENT AND PLAN SEIZURES-possible alcohol withdrawal versus other neurologic process causing new onset of seizures. First 2 episodes did occur while he was still imbibing alcohol. CT scan of the head without contrast is unremarkable. -Seizure precautions -MRI of the brain with contrast when available -Hold Wellbutrin ALCOHOL WITHDRAWAL-longstanding history of daily alcohol intake. Alcohol level somewhat low on admission and he has been somewhat tremulous. -Gabapentin 400 mg p.o. every 8 hours x4 days, then 200 mg p.o. every 8 hours for an additional 4 days -Alcohol withdrawal protocol -Banana bag HYPERTENSION -Continue outpatient medications MAINTENANCE ISSUES -DVT prophylaxis; Lovenox 40 mg subcu daily -GI prophylaxis; continue outpatient PPI therapy -Carnes catheter; not indicated -Nutrition; regular diet -Nicotine dependence; nicotine patch and nicotine gum CODE STATUS-FULL CODE ADMISSION STATUS-patient will be admitted to inpatient status, expect at least a 2 night hospital stay for evaluation and management of problems as outlined above. At the time of this admission I do not reasonably expected evaluation and management of this problem will require more than a 96 hour hospital stay. DISPOSITION-anticipate discharge to home after the hospital stay. PRIMARY CARE PROVIDER- - Mortality Measure Prognosis:: Good
[2020-04-02] MEDS ORDERED: Polyethylene Glycol 3350 Powder 17 GM Packet PO PRN (15:31)
[2020-04-02] MEDS ORDERED: Acetaminophen 325 MG Tab PO PRN (15:31)
[2020-04-02] MEDS ORDERED: Ondansetron 4 MG/2 ML SDV IV PRN (15:31)
[2020-04-02] MEDS ORDERED: LORazepam 2 MG/ML SDV IV SCH (15:31)
[2020-04-02] MEDS ORDERED: Sodium Chloride 0.9% 10 ML Syringe FLUSH PRN (15:31)
[2020-04-02] MEDS ORDERED: Nicotine Polacrilex 2 MG Gum CHEW PRN (15:42)
[2020-04-02] MEDS ORDERED: MVI, Adult with Vitamin K 10 ML, Thiamine 100 MG, Folic Acid 1 MG, Magnesium Sulfate 2 ... IV ONE ×5 (16:00)
[2020-04-02] MEDS: Magnesium Sulfate/Water 2 GM in Premix Bag 1 BAG IV SCH ×2 (16:09→21:47)
[2020-04-02] MEDS: Sodium Chloride 0.9% 1,000 ML IV SCH ×2 (16:13→23:52)
[2020-04-02] MEDS: Nicotine 21 MG/24 Hr Patch TRDERM SCH (16:58)
[2020-04-02] MEDS: Gabapentin 400 MG Cap PO SCH ×2 (16:59→23:19)
[2020-04-02] MEDS: Thiamine 100 MG Tab PO SCH (16:59)
[2020-04-02] MEDS: Folic Acid 1 MG Tab PO SCH (16:59)
[2020-04-02] MEDS: Magnesium Oxide 400 MG Tab PO SCH ×2 (16:59→21:47)
[2020-04-02] MEDS: Enoxaparin 40 MG/0.4 ML Syringe SUBCUT SCH (17:10)
[2020-04-03] MEDS: Magnesium Sulfate/Water 2 GM in Premix Bag 1 BAG IV SCH (04:17)
[2020-04-03] MEDS: Pantoprazole 40 MG Tab.CR PO SCH (07:53)
[2020-04-03] MEDS: Sodium Chloride 0.9% 1,000 ML IV SCH (07:55)
[2020-04-03] MEDS ORDERED: Potassium Chloride 20 MEQ Tab.ER PO ONE ×2 (08:03→17:00)
[2020-04-03] MEDS: Magnesium Oxide 400 MG Tab PO SCH ×2 (08:16→20:49)
[2020-04-03] MEDS: Thiamine 100 MG Tab PO SCH (08:16)
[2020-04-03] MEDS: Gabapentin 400 MG Cap PO SCH ×3 (08:16→23:39)
[2020-04-03] MEDS: Aspirin 325 MG Tab.EC PO SCH (08:16)
[2020-04-03] MEDS: Tamsulosin 0.4 MG Cap.ER PO SCH (08:16)
[2020-04-03] MEDS: Folic Acid 1 MG Tab PO SCH (08:17)
[2020-04-03] MEDS: Nicotine 21 MG/24 Hr Patch TRDERM SCH (08:18)
[2020-04-03] MEDS ORDERED: POTASSIUM GLUCONATE 550 MG PO SCH (09:00)
--- NOTE | 2020-04-03 09:42 | PCM.PN ---
- General Info Date of Service: 04/03/20 Subjective Update: Mr. Ponce has been fairly stable since admission with no further seizure activity noted. He has had mild symptoms of alcohol withdrawal, mildly tremulous. He otherwise reports that he is feeling relatively well this morning. Functional Status: Reports: Tolerating Diet, Ambulating, Urinating - Review of Systems General: Reports: Weakness, Fatigue. Denies: Fever, Chills Pulmonary: Reports: No Symptoms Cardiovascular: Reports: No Symptoms Gastrointestinal: Reports: No Symptoms - Patient Data Vitals - Most Recent: Last Vital Signs Temp 98.2 F 04/03/20 07:59 Pulse 84 04/03/20 07:59 Resp 22 H 04/03/20 07:59 BP 158/81 H 04/03/20 07:59 Pulse Ox 96 04/03/20 07:59 Weight - Most Recent: 173 lb 4.533 oz I&O - Last 24 Hours: Intake & Output 04/02/20 04/03/20 04/03/20 22:59 06:59 14:59 Intake Total 240 2915 Output Total 75 1450 Balance 165 1465 Lab Results Last 24 Hours: Laboratory Results - last 24 hr 04/02/20 04/02/20 04/02/20 Range/Units 12:59 12:59 12:59 WBC 9.8 (4.5-11.0) K/uL RBC 4.07 L (4.30-5.90) M/uL Hgb 12.2 (12.0-15.0) g/dL Hct 35.4 L (40.0-54.0) % MCV 87 (80-98) fL MCH 30 (27-31) pg MCHC 35 (32-36) % Plt Count 400 (150-400) K/uL Neut % (Auto) 64 (36-66) % Lymph % (Auto) 16 L (24-44) % [place] % (Auto) 10 H (2-6) % Eos % (Auto) 10 H (2-4) % Baso % (Auto) 1 (0-1) % Sodium 128 L (140-148) mmol/L Potassium 4.1 (3.6-5.2) mmol/L Chloride 93 L (100-108) mmol/L Carbon Dioxide 26 (21-32) mmol/L Anion Gap 13.1 (5.0-14.0) mmol/L BUN 5 L (7-18) mg/dL Creatinine 0.9 (0.8-1.3) mg/dL Est Cr Clr Drug Dosing 76.00 mL/min Estimated GFR (MDRD) > 60 (>60) Glucose 119 H (74-106) mg/dL Lactic Acid (0.4-2.0) mmol/L Calcium 8.7 (8.5-10.1) mg/dL Phosphorus 3.0 (2.5-4.9) mg/dL Magnesium 1.4 L (1.8-2.4) mg/dL Total Bilirubin 0.8 (0.2-1.0) mg/dL AST 62 H (15-37) U/L ALT 29 (12-78) U/L Alkaline Phosphatase 129 H (46-116) U/L Ammonia 20 (11-32) mmol/L Total Protein 7.1 (6.4-8.2) g/dL Albumin 3.2 L (3.4-5.0) g/dL Globulin 3.9 H (2.3-3.5) g/dL Albumin/Globulin Ratio 0.8 L (1.2-2.2) Ethyl Alcohol mg/dL 04/02/20 04/02/20 04/03/20 Range/Units 12:59 12:59 04:30 WBC 10.6 (4.5-11.0) K/uL RBC 3.73 L (4.30-5.90) M/uL Hgb 10.9 L (12.0-15.0) g/dL Hct 33.1 L (40.0-54.0) % MCV 89 (80-98) fL MCH 29 (27-31) pg MCHC 33 (32-36) % Plt Count 357 (150-400) K/uL Neut % (Auto) 62 (36-66) % Lymph % (Auto) 14 L (24-44) % [place] % (Auto) 10 H (2-6) % Eos % (Auto) 14 H (2-4) % Baso % (Auto) 1 (0-1) % Sodium (140-148) mmol/L Potassium (3.6-5.2) mmol/L Chloride (100-108) mmol/L Carbon Dioxide (21-32) mmol/L Anion Gap (5.0-14.0) mmol/L BUN (7-18) mg/dL Creatinine (0.8-1.3) mg/dL Est Cr Clr Drug Dosing mL/min Estimated GFR (MDRD) (>60) Glucose (74-106) mg/dL Lactic Acid 3.8 H (0.4-2.0) mmol/L Calcium (8.5-10.1) mg/dL Phosphorus (2.5-4.9) mg/dL Magnesium (1.8-2.4) mg/dL Total Bilirubin (0.2-1.0) mg/dL AST (15-37) U/L ALT (12-78) U/L Alkaline Phosphatase (46-116) U/L Ammonia (11-32) mmol/L Total Protein (6.4-8.2) g/dL Albumin (3.4-5.0) g/dL Globulin (2.3-3.5) g/dL Albumin/Globulin Ratio (1.2-2.2) Ethyl Alcohol 8 mg/dL 04/03/20 Range/Units 04:30 WBC (4.5-11.0) K/uL RBC (4.30-5.90) M/uL Hgb (12.0-15.0) g/dL Hct (40.0-54.0) % MCV (80-98) fL MCH (27-31) pg MCHC (32-36) % Plt Count (150-400) K/uL Neut % (Auto) (36-66) % Lymph % (Auto) (24-44) % [place] % (Auto) (2-6) % Eos % (Auto) (2-4) % Baso % (Auto) (0-1) % Sodium 133 L (140-148) mmol/L Potassium 3.4 L (3.6-5.2) mmol/L Chloride 98 L (100-108) mmol/L Carbon Dioxide 28 (21-32) mmol/L Anion Gap 10.4 (5.0-14.0) mmol/L BUN 5 L (7-18) mg/dL Creatinine 0.7 L (0.8-1.3) mg/dL Est Cr Clr Drug Dosing 97.71 mL/min Estimated GFR (MDRD) > 60 (>60) Glucose 123 H (74-106) mg/dL Lactic Acid (0.4-2.0) mmol/L Calcium 8.4 L (8.5-10.1) mg/dL Phosphorus (2.5-4.9) mg/dL Magnesium 2.3 (1.8-2.4) mg/dL Total Bilirubin (0.2-1.0) mg/dL AST (15-37) U/L ALT (12-78) U/L Alkaline Phosphatase (46-116) U/L Ammonia (11-32) mmol/L Total Protein (6.4-8.2) g/dL Albumin (3.4-5.0) g/dL Globulin (2.3-3.5) g/dL Albumin/Globulin Ratio (1.2-2.2) Ethyl Alcohol mg/dL Med Orders - Current: Current Medications Acetaminophen (Tylenol) 650 mg PO Q4H PRN PRN Reason: Pain (Mild 1-3)/fever Aspirin (Ecotrin) 325 mg PO DAILY [facility] Last Admin: 04/03/20 08:16 Dose: 325 mg Documented by: Enoxaparin Sodium (Lovenox) 40 mg SUBCUT Q24H [facility] Last Admin: 04/02/20 17:10 Dose: 40 mg Documented by: Folic Acid (Folic Acid) 1 mg PO DAILY [facility] Last Admin: 04/03/20 08:17 Dose: 1 mg Documented by: Gabapentin (Neurontin) 400 mg PO Q8H [facility] Stop: 04/06/20 16:01 Last Admin: 04/03/20 08:16 Dose: 400 mg Documented by: Lorazepam (Ativan) 0 mg IV ASDIRECTED [facility]; Protocol Magnesium Oxide (Magnesium Oxide) 400 mg PO BID [facility] Last Admin: 04/03/20 08:16 Dose: 400 mg Documented by: Nicotine (Habitrol) 21 mg TRDERM DAILY [facility] Last Admin: 04/03/20 08:18 Dose: 21 mg Documented by: Nicotine Polacrilex (Nicorelief) 2 mg CHEW Q1H PRN PRN Reason: Other Potassium Gluconate (550 MgPom) 0 mg PO DAILY [facility] Ondansetron HCl (Zofran) 4 mg IV Q4H PRN PRN Reason: Nausea/Vomiting Pantoprazole Sodium (Protonix) 40 mg PO ACBREAKFAST [facility] Last Admin: 04/03/20 07:53 Dose: 40 mg Documented by: Polyethylene Glycol (Miralax) 17 gm PO DAILY PRN PRN Reason: Constipation Potassium Chloride (Klor-Con M20) 40 meq PO ONETIME ONE Stop: 04/03/20 17:01 Sodium Chloride (Saline Flush) 10 ml FLUSH ASDIRECTED PRN PRN Reason: Keep Vein Open Tamsulosin HCl (Flomax) 0.4 mg PO DAILY [facility] Last Admin: 04/03/20 08:16 Dose: 0.4 mg Documented by: Thiamine HCl (Vitamin B-1) 100 mg PO DAILY [facility] Last Admin: 04/03/20 08:16 Dose: 100 mg Documented by: Discontinued Medications Multivitamins/Minerals 10 ml/Thiamine HCl 200 mg/ Folic Acid 1 mg/ Magnesium Sulfate 2 gm/ Dextrose/Lactated Ringer' s 1,016.2 mls @ 500 mls/hr IV ONETIME ONE Stop: 04/02/20 16:16 Last Admin: 04/02/20 14:09 Dose: 500 mls/hr Documented by: Multivitamins/Minerals 10 ml/Thiamine HCl 100 mg/ Folic Acid 1 mg/ Magnesium Sulfate 2 gm/ Sodium Chloride 1,015.2 mls @ 100 mls/hr IV ONETIME ONE Stop: 04/03/20 02:09 Sodium Chloride (Normal Saline) 1,000 mls @ 125 mls/hr IV ASDIRECTED [facility] Last Admin: 04/03/20 07:55 Dose: 125 mls/hr Documented by: Magnesium Sulfate 2 gm/ Premix 50 mls @ 25 mls/hr IV Q6H [facility] Stop: 04/03/20 05:59 Last Admin: 04/03/20 04:17 Dose: 25 mls/hr Documented by: Lorazepam (Ativan) 1 mg IVPUSH ONETIME ONE Stop: 04/02/20 12:59 Last Admin: 04/02/20 13:07 Dose: 1 mg Documented by: Potassium Chloride (Klor-Con M20) 40 meq PO ONETIME ONE Stop: 04/03/20 08:04 Last Admin: 04/03/20 08:30 Dose: 40 meq Documented by: - Exam General: Alert, Oriented, Cooperative, No Acute Distress Lungs: Clear to Auscultation, Normal Respiratory Effort Cardiovascular: Regular Rate, Regular Rhythm, No Murmurs GI/Abdominal Exam: Soft, Non-Tender, No Organomegaly, No Distention Extremities: Non-Tender, No Pedal Edema Sepsis Event Note - Evaluation Sepsis Screening Result: No Definite Risk - Focused Exam Vital Signs: Vital Signs Temp Pulse Resp BP Pulse Ox 04/03/20 07:59 98.2 F 84 22 H 158/81 H 96 04/03/20 06:00 82 14 151/73 H 94 L 04/03/20 04:00 97.8 F 85 15 145/77 H 96 04/03/20 02:00 87 20 162/82 H 95 04/03/20 00:00 97 F 84 18 160/78 H 95 04/02/20 22:00 89 20 158/79 H 95 - Problem List Review Problem List Initiated/Reviewed/Updated: Yes - My Orders Last 24 Hours: My Active Orders 04/02/20 Lunch Regular Diet [DIET] 04/02/20 15:00 Resuscitation Status Routine 04/02/20 15:31 Acetaminophen [TylenoL] 650 mg PO Q4H PRN LORazepam [Ativan] See Protocol IV ASDIRECTED Ondansetron [Zofran] 4 mg IV Q4H PRN Sodium Chloride 0.9% [Saline Flush] 10 ml FLUSH ASDIRECTED PRN polyethylene glycoL 3350 [MiraLAX] 17 gm PO DAILY PRN 04/02/20 15:31 Patient Status [ADT] Routine CIWAA Assessment [RC] Q2H Cardiac Monitoring [RC] Q6H Height and Weight [RC] DAILY Intake and Output [RC] QSHIFT Notify Provider Vital Signs [RC] ASDIRECTED Notify Provider [RC] PRN Oxygen Therapy [RC] PRN Peripheral IV Care [RC] . DIRECTED Pulse Oximetry [RC] CONTINUOUS Up With Assistance [RC] ASDIRECTED Up to Chair [RC] QID Vital Signs [RC] Q2H Peripheral IV Insertion Adult [OM.PC] Routine Seizure Precautions [OM.PC] Routine 04/02/20 15:42 Nicotine Polacrilex [Nicorelief] 2 mg CHEW Q1H PRN 04/02/20 16:00 Folic Acid 1 mg PO DAILY Gabapentin [Neurontin] 400 mg PO Q8H Magnesium Oxide 400 mg PO BID Nicotine [Habitrol] 21 mg TRDERM DAILY Thiamine [Vitamin B-1] 100 mg PO DAILY 04/02/20 18:00 Enoxaparin [Lovenox] 40 mg SUBCUT Q24H 04/03/20 07:30 Pantoprazole [ProTONIX] 40 mg PO ACBREAKFAST 04/03/20 08:00 Brain w wo Cont [MR] Routine 04/03/20 09:00 Aspirin [Ecotrin] 325 mg PO DAILY Potassium Gluconate [Potassium] 0 mg PO DAILY Tamsulosin [Flomax] 0.4 mg PO DAILY 04/03/20 09:39 Convert IV to Saline Lock [OM.PC] Routine 04/03/20 17:00 Potassium Chloride [Klor-Con M20] 40 meq PO ONETIME ONE 04/04/20 05:00 BASIC METABOLIC PANEL,BMP [CHEM] Timed - Plan Plan:: ASSESSMENT AND PLAN SEIZURES-possible alcohol withdrawal versus other neurologic process causing new onset of seizures. Seizure activity noted since admission -Seizure precautions -MRI of the brain with contrast today -Hold Wellbutrin ALCOHOL WITHDRAWAL-longstanding history of daily alcohol intake. Mild symptoms of withdrawal noted thus far -Gabapentin 400 mg p.o. every 8 hours x4 days, then 200 mg p.o. every 8 hours for an additional 4 days -Alcohol withdrawal protocol -Banana bag HYPERTENSION -Continue outpatient medications MAINTENANCE ISSUES -DVT prophylaxis; Lovenox 40 mg subcu daily -GI prophylaxis; continue outpatient PPI therapy -Carnes catheter; not indicated -Nutrition; regular diet -Nicotine dependence; nicotine patch and nicotine gum CODE STATUS-FULL CODE ADMISSION STATUS-patient will be admitted to inpatient status, expect at least a 2 night hospital stay for evaluation and management of problems as outlined above. At the time of this admission I do not reasonably expected evaluation and management of this problem will require more than a 96 hour hospital stay. DISPOSITION-anticipate discharge to home after the hospital stay. PRIMARY CARE PROVIDER-
[2020-04-03] MEDS ORDERED: Gadoteridol 279.3 MG/ML 20 ML SDV IV SCH (10:00)
--- NOTE | 2020-04-03 14:27 | MR ---
Brain w wo Cont CLINICAL HISTORY: Seizures COMPARISON: Head CT 04/02/2020 TECHNIQUE: Multiple axial, sagittal, and coronal images were obtained on a 1.5 T magnet with multiweighted sequences, FLAIR, and diffusion imaging pre and post IV contrast enhancement, 20 mL ProHance FINDINGS: There is no focal mass lesion. There is no hemmorhage or extraaxial collection. There is no restricted diffusion. There are some scattered hyperintensities on T2 and FLAIR images in the periventricular and subcortical white matter. The basal cisterns and sulci over the convexities are prominent. The ventricles are prominent. Postcontrast images show no enhancing lesions or abnormal vascular patterns IMPRESSION: Age-related atrophy Chronic ischemic microvascular changes No focal lesion, mass effect or hemorrhage
[2020-04-03] MEDS: Enoxaparin 40 MG/0.4 ML Syringe SUBCUT SCH (17:44)
[2020-04-04] MEDS: Thiamine 100 MG Tab PO SCH (08:19)
[2020-04-04] MEDS: Gabapentin 400 MG Cap PO SCH ×2 (08:19→16:05)
[2020-04-04] MEDS: Folic Acid 1 MG Tab PO SCH (08:19)
[2020-04-04] MEDS: Magnesium Oxide 400 MG Tab PO SCH ×2 (08:19→22:02)
[2020-04-04] MEDS: Tamsulosin 0.4 MG Cap.ER PO SCH (08:19)
[2020-04-04] MEDS: Potassium Chloride 10 MEQ Cap.ER PO SCH (08:19)
[2020-04-04] MEDS: Pantoprazole 40 MG Tab.CR PO SCH (08:19)
[2020-04-04] MEDS: Aspirin 325 MG Tab.EC PO SCH (08:19)
[2020-04-04] MEDS: Nicotine 21 MG/24 Hr Patch TRDERM SCH (08:20)
--- NOTE | 2020-04-04 09:37 | PCM.PN ---
- General Info Date of Service: 04/04/20 Subjective Update: Mr. Ponce has been stable over the last 24 hours with no seizure activity or significant alcohol withdrawal. He reports that he feels well and is interested in discussing possible alcohol treatment. Functional Status: Reports: Tolerating Diet, Ambulating, Urinating - Review of Systems General: Reports: Weakness, Fatigue. Denies: Fever, Chills Pulmonary: Reports: No Symptoms Cardiovascular: Reports: No Symptoms Gastrointestinal: Reports: No Symptoms Neurological: Reports: No Symptoms - Patient Data Vitals - Most Recent: Last Vital Signs Temp 97.8 F 04/04/20 08:00 Pulse 82 04/04/20 04:00 Resp 16 04/04/20 08:00 BP 156/87 H 04/04/20 08:00 Pulse Ox 96 04/04/20 08:00 Weight - Most Recent: 173 lb 4.533 oz I&O - Last 24 Hours: Intake & Output 04/03/20 04/04/20 04/04/20 22:59 06:59 14:59 Intake Total 500 600 Output Total 1350 700 Balance -850 -100 Lab Results Last 24 Hours: Laboratory Results - last 24 hr 04/04/20 Range/Units 04:05 Sodium 132 L (140-148) mmol/L Potassium 3.7 (3.6-5.2) mmol/L Chloride 100 (100-108) mmol/L Carbon Dioxide 24 (21-32) mmol/L Anion Gap 11.7 (5.0-14.0) mmol/L BUN 6 L (7-18) mg/dL Creatinine 0.8 (0.8-1.3) mg/dL Est Cr Clr Drug Dosing 85.82 mL/min Estimated GFR (MDRD) > 60 (>60) Glucose 99 (74-106) mg/dL Calcium 8.8 (8.5-10.1) mg/dL Med Orders - Current: Current Medications Acetaminophen (Tylenol) 650 mg PO Q4H PRN PRN Reason: Pain (Mild 1-3)/fever Aspirin (Ecotrin) 325 mg PO DAILY [facility] Last Admin: 04/04/20 08:19 Dose: 325 mg Documented by: Enoxaparin Sodium (Lovenox) 40 mg SUBCUT Q24H [facility] Last Admin: 04/03/20 17:44 Dose: 40 mg Documented by: Folic Acid (Folic Acid) 1 mg PO DAILY [facility] Last Admin: 04/04/20 08:19 Dose: 1 mg Documented by: Gabapentin (Neurontin) 400 mg PO Q8H [facility] Stop: 04/06/20 16:01 Last Admin: 04/04/20 08:19 Dose: 400 mg Documented by: Lorazepam (Ativan) 0 mg IV ASDIRECTED [facility]; Protocol Last Admin: 04/03/20 20:49 Dose: 1 mg Documented by: Magnesium Oxide (Magnesium Oxide) 400 mg PO BID [facility] Last Admin: 04/04/20 08:19 Dose: 400 mg Documented by: Nicotine (Habitrol) 21 mg TRDERM DAILY [facility] Last Admin: 04/04/20 08:20 Dose: 21 mg Documented by: Nicotine Polacrilex (Nicorelief) 2 mg CHEW Q1H PRN PRN Reason: Other Ondansetron HCl (Zofran) 4 mg IV Q4H PRN PRN Reason: Nausea/Vomiting Pantoprazole Sodium (Protonix) 40 mg PO ACBREAKFAST [facility] Last Admin: 04/04/20 08:19 Dose: 40 mg Documented by: Polyethylene Glycol (Miralax) 17 gm PO DAILY PRN PRN Reason: Constipation Potassium Chloride (Potassium Chloride) 10 meq PO DAILY [facility] Last Admin: 04/04/20 08:19 Dose: 10 meq Documented by: Sodium Chloride (Saline Flush) 10 ml FLUSH ASDIRECTED PRN PRN Reason: Keep Vein Open Tamsulosin HCl (Flomax) 0.4 mg PO DAILY [facility] Last Admin: 04/04/20 08:19 Dose: 0.4 mg Documented by: Thiamine HCl (Vitamin B-1) 100 mg PO DAILY [facility] Last Admin: 04/04/20 08:19 Dose: 100 mg Documented by: Discontinued Medications Gadoteridol (Prohance) 20 ml IV . DIRECTED [facility] Stop: 04/03/20 11:00 Last Admin: 04/03/20 10:40 Dose: 20 ml Documented by: Multivitamins/Minerals 10 ml/Thiamine HCl 200 mg/ Folic Acid 1 mg/ Magnesium Sulfate 2 gm/ Dextrose/Lactated Ringer' s 1,016.2 mls @ 500 mls/hr IV ONETIME ONE Stop: 04/02/20 16:16 Last Admin: 04/02/20 14:09 Dose: 500 mls/hr Documented by: Multivitamins/Minerals 10 ml/Thiamine HCl 100 mg/ Folic Acid 1 mg/ Magnesium Sulfate 2 gm/ Sodium Chloride 1,015.2 mls @ 100 mls/hr IV ONETIME ONE Stop: 04/03/20 02:09 Sodium Chloride (Normal Saline) 1,000 mls @ 125 mls/hr IV ASDIRECTED [facility] Last Admin: 04/03/20 07:55 Dose: 125 mls/hr Documented by: Magnesium Sulfate 2 gm/ Premix 50 mls @ 25 mls/hr IV Q6H [facility] Stop: 04/03/20 05:59 Last Admin: 04/03/20 04:17 Dose: 25 mls/hr Documented by: Lorazepam (Ativan) 1 mg IVPUSH ONETIME ONE Stop: 04/02/20 12:59 Last Admin: 04/02/20 13:07 Dose: 1 mg Documented by: Potassium Chloride (Klor-Con M20) 40 meq PO ONETIME ONE Stop: 04/03/20 08:04 Last Admin: 04/03/20 08:30 Dose: 40 meq Documented by: Potassium Chloride (Klor-Con M20) 40 meq PO ONETIME ONE Stop: 04/03/20 17:01 Last Admin: 04/03/20 17:43 Dose: 40 meq Documented by: - Exam Quality Assessment: DVT Prophylaxis General: Alert, Oriented, Cooperative, Mild Distress Lungs: Clear to Auscultation, Normal Respiratory Effort Cardiovascular: Regular Rate, Regular Rhythm, No Murmurs GI/Abdominal Exam: Soft, Non-Tender, No Organomegaly, No Distention Sepsis Event Note - Evaluation Sepsis Screening Result: No Definite Risk - Focused Exam Vital Signs: Vital Signs Temp Pulse Resp BP Pulse Ox 04/04/20 08:00 97.8 F 16 156/87 H 96 04/04/20 04:00 82 152/70 H 04/04/20 02:00 80 152/78 H 04/04/20 00:00 87 19 172/88 H 98 04/03/20 22:00 87 169/90 H - Problem List Review Problem List Initiated/Reviewed/Updated: Yes - My Orders Last 24 Hours: My Active Orders 04/03/20 09:00 Aspirin [Ecotrin] 325 mg PO DAILY Tamsulosin [Flomax] 0.4 mg PO DAILY 04/03/20 09:39 Convert IV to Saline Lock [OM.PC] Routine 04/04/20 09:00 Potassium Chloride 10 meq PO DAILY - Plan Plan:: ASSESSMENT AND PLAN SEIZURES-possible alcohol withdrawal. With no recurrent seizures. MRI obtained yesterday showed no significant abnormalities other than atrophy. -Seizure precautions -Hold Wellbutrin ALCOHOL WITHDRAWAL-longstanding history of daily alcohol intake. Minimal withdrawal symptoms, he is interested in discussing alcohol treatment. -Gabapentin 400 mg p.o. every 8 hours x4 days, then 200 mg p.o. every 8 hours for an additional 4 days -Alcohol withdrawal protocol HYPERTENSION -Continue outpatient medications MAINTENANCE ISSUES -DVT prophylaxis; Lovenox 40 mg subcu daily -GI prophylaxis; continue outpatient PPI therapy -Carnes catheter; not indicated -Nutrition; regular diet -Nicotine dependence; nicotine patch and nicotine gum CODE STATUS-FULL CODE ADMISSION STATUS-patient will be admitted to inpatient status, expect at least a 2 night hospital stay for evaluation and management of problems as outlined abo ve. At the time of this admission I do not reasonably expected evaluation and management of this problem will require more than a 96 hour hospital stay. DISPOSITION-anticipate discharge to home after the hospital stay. PRIMARY CARE PROVIDER-Dr. Gonzalez
[2020-04-04] MEDS: Enoxaparin 40 MG/0.4 ML Syringe SUBCUT SCH (17:52)
[2020-04-05] MEDS: Gabapentin 400 MG Cap PO SCH ×2 (00:21→08:24)
[2020-04-05 05:57] VITALS: PULSE 94
[2020-04-05] MEDS: Nicotine 21 MG/24 Hr Patch TRDERM SCH (08:23)
[2020-04-05] MEDS: Folic Acid 1 MG Tab PO SCH (08:24)
[2020-04-05] MEDS: Aspirin 325 MG Tab.EC PO SCH (08:24)
[2020-04-05] MEDS: Magnesium Oxide 400 MG Tab PO SCH (08:24)
[2020-04-05] MEDS: Potassium Chloride 10 MEQ Cap.ER PO SCH (08:24)
[2020-04-05] MEDS: Pantoprazole 40 MG Tab.CR PO SCH (08:24)
[2020-04-05] MEDS: Thiamine 100 MG Tab PO SCH (08:24)
[2020-04-05] MEDS: Tamsulosin 0.4 MG Cap.ER PO SCH (08:24)
[2020-04-05] MEDS ORDERED: Lisinopril 5 MG Tab PO ONE (10:20)
[2020-04-05 10:28] VITALS: BP 161/84
--- NOTE | 2020-04-05 11:00 | PCM.DCSUM1 ---
Discharge Summary - Hospital Course Brief History: Mr. Ponce is a 70-year-old gentleman who was admitted through the emergency department for further evaluation and management of seizures and alcohol withdrawal. - Discharge Data Discharge Date: 04/05/20 Discharge Disposition: Home, Self-Care 01 Condition: Fair - Referral to Home Health Primary Care Physician: Sherif Gonzalez MD - Discharge Diagnosis/Problem(s) (1) Alcohol withdrawal SNOMED Code(s): 997448610 ICD Code: F10.239 - ALCOHOL DEPENDENCE WITH WITHDRAWAL, UNSPECIFIED Status: Acute Current Visit: Yes (2) Alcohol withdrawal seizure SNOMED Code(s): 383535430 ICD Code: F10.239 - ALCOHOL DEPENDENCE WITH WITHDRAWAL, UNSPECIFIED; R56.9 - UNSPECIFIED CONVULSIONS Status: Acute Current Visit: Yes Qualifiers: Complication of substance-induced condition: uncomplicated Qualified Code(s): F10.230 - Alcohol dependence with withdrawal, uncomplicated (3) Chronic alcohol use SNOMED Code(s): 835155 ICD Code: Z72.89 - OTHER PROBLEMS RELATED TO LIFESTYLE Status: Chronic Current Visit: No - Patient Summary/Data Hospital Course: Mr. Ponce is a 70-year-old gentleman who was admitted through the emergency department for management of seizures and alcohol withdrawal. He has a longstanding history of daily alcohol intake of at least 750 mL/day. 2 days ago his noted jerking movement of his right upper extremity and then he became very weak and lethargic. He really has not tapered back on his alcohol use over the past few days. He had a second episode this morning at home with a generalized tonic-clonic seizure. And a third episode that was witnessed in the emergency department and also felt to be consistent with a tonic-clonic gene ralized seizure. He denies any previous history of seizures and there is been no recent history of head injury. CT scan of the head without contrast was obtained and is unremarkable. He denies any other significant neurologic symptoms. He is felt to be experiencing alcohol withdrawal today and his alcohol intake thus far today has been fairly minimal. On admission he was started on a regimen of gabapentin for management of alcohol withdrawal. He received a banana bag as well as supplemental thiamine and folic acid. He was placed on alcohol withdrawal protocol for management of alcohol withdrawal with regular CIWA assessments. Medications were reviewed for any drugs that may be contributing to seizures. His Wellbutrin was identified as a medication that lowers seizure threshold and was discontinued. MRI with contrast was obtained on the day after admission and showed evidence of atrophy but no other significant abnormalities. He had only minimal symptoms of alcohol withdrawal during hospitalization and will be discharged home. He has been counseled concerning the importance of alcohol cessation, I am skeptical that he plans to proceed with any type of treatment and will likely resume drinking immediately after discharge. He will be discharged home with additional gabapentin to complete an 8-day course for withdrawal. Wellbutrin will be held because of recent seizures. He was given information on community resources for alcohol treatment. Activity will be as tolerated and he will resume his usual diet. Follow-up appointment will be scheduled with his primary care provider within 1 week. - Patient Instructions Diet: Usual Diet as Tolerated, No Alcoholic Beverages Activity: As Tolerated Other/Special Instructions: Schedule follow-up appointment with primary care provider within 1 week - Discharge Plan *PRESCRIPTION DRUG MONITORING PROGRAM REVIEWED*: Not Applicable *COPY OF PRESCRIPTION DRUG MONITORING REPORT IN PATIENT MARITZA: Not Applicable Prescriptions/Med Rec: Gabapentin [Neurontin] 100 mg PO Q8H #36 cap Home Medications: Home Meds Aspirin [Aspirin EC] 325 mg PO DAILY 11/29/19 [History] Omeprazole 20 mg PO DAILY 11/29/19 [History] Potassium Gluconate [Potassium] 550 mg PO DAILY 11/29/19 [History] Sennosides/Docusate Sodium [Senna-Docusate Sodium Tablet] 1 each PO BID 11/29/19 [History] Sildenafil [Revatio] 20 mg PO ASDIRECTED PRN 11/29/19 [History] Multivitamin [Multivitamins] 1 tab PO DAILY 12/07/19 [History] Naproxen Sodium [Aleve] 220 mg PO BID PRN 12/07/19 [History] Acetaminophen [Tylenol] 650 mg PO Q6H tablet 03/12/20 [Rx] Tamsulosin [Flomax] 0.4 mg PO DAILY 04/02/20 [History] Gabapentin [Neurontin] 100 mg PO Q8H #36 cap 04/05/20 [Rx] Referrals: Sherif Gonzalez MD [Primary Care Provider] - 04/07/20 1:30 pm ([facility] arrive 15 minutes early to register for your appointment.) - Discharge Summary/Plan Comment DC Time >30 min.: No - Patient Data Vitals - Most Recent: Last Vital Signs Temp 97.6 F 04/05/20 08:00 Pulse 94 04/05/20 05:00 Resp 12 04/05/20 10:00 BP 161/84 H 04/05/20 10:28 Pulse Ox 99 04/05/20 10:00 Weight - Most Recent: 173 lb 4.533 oz I&O - Last 24 hours: Intake & Output 04/04/20 04/05/20 04/05/20 22:59 06:59 14:59 Intake Total 300 250 Output Total 225 900 Balance 75 -650 Med Orders - Current: Current Medications Acetaminophen (Tylenol) 650 mg PO Q4H PRN PRN Reason: Pain (Mild 1-3)/fever Aspirin (Ecotrin) 325 mg PO DAILY [facility] Last Admin: 04/05/20 08:24 Dose: 325 mg Documented by: Enoxaparin Sodium (Lovenox) 40 mg SUBCUT Q24H [facility] Last Admin: 04/04/20 17:52 Dose: 40 mg Documented by: Folic Acid (Folic Acid) 1 mg PO DAILY [facility] Last Admin: 04/05/20 08:24 Dose: 1 mg Documented by: Gabapentin (Neurontin) 400 mg PO Q8H [facility] Stop: 04/06/20 16:01 Last Admin: 04/05/20 08:24 Dose: 400 mg Documented by: Lorazepam (Ativan) 0 mg IV ASDIRECTED [facility]; Protocol Last Admin: 04/03/20 20:49 Dose: 1 mg Documented by: Magnesium Oxide (Magnesium Oxide) 400 mg PO BID [facility] Last Admin: 04/05/20 08:24 Dose: 400 mg Documented by: Nicotine (Habitrol) 21 mg TRDERM DAILY [facility] Last Admin: 04/05/20 08:23 Dose: 21 mg Documented by: Nicotine Polacrilex (Nicorelief) 2 mg CHEW Q1H PRN PRN Reason: Other Ondansetron HCl (Zofran) 4 mg IV Q4H PRN PRN Reason: Nausea/Vomiting Pantoprazole Sodium (Protonix) 40 mg PO ACBREAKFAST [facility] Last Admin: 04/05/20 08:24 Dose: 40 mg Documented by: Polyethylene Glycol (Miralax) 17 gm PO DAILY PRN PRN Reason: Constipation Potassium Chloride (Potassium Chloride) 10 meq PO DAILY [facility] Last Admin: 04/05/20 08:24 Dose: 10 meq Documented by: Sodium Chloride (Saline Flush) 10 ml FLUSH ASDIRECTED PRN PRN Reason: Keep Vein Open Tamsulosin HCl (Flomax) 0.4 mg PO DAILY [facility] Last Admin: 04/05/20 08:24 Dose: 0.4 mg Documented by: Thiamine HCl (Vitamin B-1) 100 mg PO DAILY [facility] Last Admin: 04/05/20 08:24 Dose: 100 mg Documented by: Discontinued Medications Gadoteridol (Prohance) 20 ml IV . DIRECTED [facility] Stop: 04/03/20 11:00 Last Admin: 04/03/20 10:40 Dose: 20 ml Documented by: Multivitamins/Minerals 10 ml/Thiamine HCl 200 mg/ Folic Acid 1 mg/ Magnesium Sulfate 2 gm/ Dextrose/Lactated Ringer' s 1,016.2 mls @ 500 mls/hr IV ONETIME ONE Stop: 04/02/20 16:16 Last Admin: 04/02/20 14:09 Dose: 500 mls/hr Documented by: Multivitamins/Minerals 10 ml/Thiamine HCl 100 mg/ Folic Acid 1 mg/ Magnesium Sulfate 2 gm/ Sodium Chloride 1,015.2 mls @ 100 mls/hr IV ONETIME ONE Stop: 04/03/20 02:09 Sodium Chloride (Normal Saline) 1,000 mls @ 125 mls/hr IV ASDIRECTED [facility] Last Admin: 04/03/20 07:55 Dose: 125 mls/hr Documented by: Magnesium Sulfate 2 gm/ Premix 50 mls @ 25 mls/hr IV Q6H [facility] Stop: 04/03/20 05:59 Last Admin: 04/03/20 04:17 Dose: 25 mls/hr Documented by: Lisinopril (Prinivil) 5 mg PO ONETIME ONE Stop: 04/05/20 10:21 Last Admin: 04/05/20 10:28 Dose: 5 mg Documented by: Lorazepam (Ativan) 1 mg IVPUSH ONETIME ONE Stop: 04/02/20 12:59 Last Admin: 04/02/20 13:07 Dose: 1 mg Documented by: Potassium Chloride (Klor-Con M20) 40 meq PO ONETIME ONE Stop: 04/03/20 08:04 Last Admin: 08/20/20 08:30 Dose: 40 meq Documented by: Potassium Chloride (Klor-Con M20) 40 meq PO ONETIME ONE Stop: 04/03/20 17:01 Last Admin: 04/03/20 17:43 Dose: 40 meq Documented by: - Exam General: Reports: Alert, Oriented, Cooperative, Mild Distress Lungs: Reports: Clear to Auscultation, Normal Respiratory Effort Cardiovascular: Reports: Regular Rate, Regular Rhythm, No Murmurs GI/Abdominal Exam: Soft, Non-Tender, No Organomegaly, No Distention
== END 2020-04-05 11:46 | disposition home or self-care (01) | DRG 897 ==
LOC: JP.ED 12:16 → JP.ICU 14:57
PROVIDERS: ADMIT Hospitalist; ATTEND Hospitalist
DX: F10.230 Alcohol dependence with withdrawal, uncomplicated (principal); R56.9 Unspecified convulsions; H54.7 Unspecified visual loss; I10 Essential (primary) hypertension; I73.9 Peripheral vascular disease, unspecified; K21.9 Gastro-esophageal reflux disease without esophagitis; N42.9 Disorder of prostate, unspecified; K42.9 Umbilical hernia without obstruction or gangrene; R32 Unspecified urinary incontinence; G89.29 Other chronic pain; M54.9 Dorsalgia, unspecified; F32.9 Major depressive disorder, single episode, unspecified; Z90.79 Acquired absence of other genital organ(s); F17.200 Nicotine dependence, unspecified, uncomplicated; E87.6 Hypokalemia; F17.210 Nicotine dependence, cigarettes, uncomplicated; Z72.89 Other problems related to lifestyle; Z79.82 Long term (current) use of aspirin; Z79.899 Other long term (current) drug therapy; Z85.46 Personal history of malignant neoplasm of prostate; Z98.890 Other specified postprocedural states
CPT/HCPCS: 36415; 70450 ×2; 80053; 80307; 82140; 83605; 83735; 84100; 85025; 96365; 96375; 99285; J2060; J3411; J3475; J7121; 70553; 70553-26; 80048; A9270-GY; A9579; J1650; J3490; J7030

== ENCOUNTER 2021-07-31 08:00 | Day surgery (SDC) | payer MEDICARE ==
[2021-07-31] MEDS ORDERED: Midazolam 1 MG/ML 2 ML SDV ONE (08:12)
[2021-07-31] MEDS ORDERED: Propofol 200 MG/20 ML SDV ONE ×2 (08:12→10:11)
[2021-07-31] MEDS ORDERED: fentaNYL 100 MCG/2 ML SDV ONE (08:12)
[2021-07-31] MEDS ORDERED: Sodium Chloride 0.9% 1,000 ML IV SCH (08:45)
[2021-07-31 11:41] VITALS: BP 146/74; PULSE 107
--- NOTE | 2021-08-01 18:26 | OR ---
DATE OF PROCEDURE: SURGEON: Alexandre Olmedo MD PROCEDURE: Colonoscopy. COMPLICATION: None. CONCRETE BOOM OPERATOR: None. ANESTHESIA: MAC. PREOPERATIVE DIAGNOSIS: Screening colonoscopy. POSTOPERATIVE DIAGNOSIS: Screening colonoscopy. FINDINGS: Poor colon prep. RISKS: Risk, benefits, alternatives, and limitations including but not limited to infection, bleeding, perforation, false positives, false negatives were explained to the patient and wished to proceed. PROCEDURE IN DETAIL: The patient was placed in left lateral decubitus position. Digital rectal exam was performed without abnormality. Scope was introduced and advanced atraumatically to about the level of the ileocecal valve. The last 2 cm could not be advanced due to significant tortuosity in the colon and a significant loop in the colon itself. The scope was brought back to the remainder of the colon and retroflexed. The prep was marginal. No polyps, no masses, no areas of concern. No old or new blood. Prep was poor, approximately 75% of luminal surface could be seen. No abnormalities on retroflexion. Greater than 8 minutes was spent removing the scope. The patient and I discussed his results including repeat colonoscopy due to the findings as mentioned above. The patient has declined this. We discussed the risks, benefits, alternatives, limitations including the fact that we could be leaving colorectal cancer or other pathological diagnoses undetermined due to that choice. He understands these risks and does not want any further intervention testing or treatment. The patient understood along with his family and he pleasant during the discussion. Alexandre Olmedo MD /[id number]
== END 2021-07-31 11:15 | disposition home or self-care (01) ==
LOC: JP.SDS 08:00
PROVIDERS: ATTEND Surgery
DX: Z12.11 Encounter for screening for malignant neoplasm of colon (principal); F17.200 Nicotine dependence, unspecified, uncomplicated; I10 Essential (primary) hypertension; K21.9 Gastro-esophageal reflux disease without esophagitis
CPT/HCPCS: G0121; J2250; J2704; J3010; J7030

== ENCOUNTER 2022-11-11 17:15 | Emergency (ER) | payer MEDICARE ==
[2022-11-11] MEDS ORDERED: Morphine 2 MG/ML SYRINGE IVPUSH ONE ×2 (18:31→20:56)
[2022-11-11] MEDS ORDERED: Lidocaine 1% with EPINEPHrine 1:100,000 50 ML MDV SUBCUT ONE (19:42)
[2022-11-11] MEDS ORDERED: ceFAZolin 1 GM Vial ONE (19:52)
[2022-11-11] MEDS ORDERED: ceFAZolin 1 GM in Sodium Chloride 0.9% 50 ML IV ONE (19:58)
[2022-11-11] MEDS ORDERED: Propofol 200 MG/20 ML SDV ONE ×2 (20:04)
[2022-11-11 20:57] VITALS: BP 145/68; PULSE 105
[2022-11-11 21:18] LABS: CORONAVIRUS COVID-19 NAA NEGATIVE (NEGATIVE)
== END 2022-11-11 21:10 ==
LOC: JP.ED 17:15
DX: S27.2XXA Traumatic hemopneumothorax, initial encounter (principal); S22.41XA Multiple fractures of ribs, right side, initial encounter for closed fracture; F10.90 Alcohol use, unspecified, uncomplicated; G62.9 Polyneuropathy, unspecified; E88.09 Other disorders of plasma-protein metabolism, not elsewhere classified; E87.1 Hypo-osmolality and hyponatremia; E80.6 Other disorders of bilirubin metabolism; R74.01 Elevation of levels of liver transaminase levels; D64.9 Anemia, unspecified; E87.6 Hypokalemia; I10 Essential (primary) hypertension; K21.9 Gastro-esophageal reflux disease without esophagitis; Z79.82 Long term (current) use of aspirin; Z79.899 Other long term (current) drug therapy; W18.30XA Fall on same level, unspecified, initial encounter
CPT/HCPCS: 0241U; 32551; 36415; 71045; 71046; 85610; 85730; 96365; 96375; 96376; 99285; J0690; J2270; J2704

== ENCOUNTER 2022-12-09 08:30 | Inpatient (IN) | payer MEDICARE ==
[2022-12-09] MEDS ORDERED: Succinylcholine 200 MG/10 ML MDV ONE (09:19)
[2022-12-09] MEDS ORDERED: Ondansetron 4 MG/2 ML SDV ONE (09:19)
[2022-12-09] MEDS ORDERED: Rocuronium 50 MG/5 ML Vial ONE (09:19)
[2022-12-09] MEDS ORDERED: fentaNYL 250 MCG/5 ML SDV ONE (09:19)
[2022-12-09] MEDS ORDERED: Propofol 200 MG/20 ML SDV ONE (09:19)
[2022-12-09] MEDS ORDERED: Dexamethasone 4 MG/ML SDV ONE (09:19)
[2022-12-09] MEDS ORDERED: Neostigmine Methylsulfate 1 MG/ML 5 ML Syringe ONE (09:19)
[2022-12-09] MEDS ORDERED: Glycopyrrolate 0.2 MG/ML 5 ML MDV ONE (09:19)
[2022-12-09] MEDS ORDERED: Meropenem 500 MG in Sodium Chloride 0.9% 50 ML IV ONE (09:30)
[2022-12-09] MEDS: Dextrose 5%-0.9% NaCl 1,000 ML IV SCH ×2 (09:40→14:16)
[2022-12-09] MEDS ORDERED: Ketamine 500 MG/5 ML MDV IV SCH (09:45)
[2022-12-09] MEDS ORDERED: Ketamine 20 MG in Sodium Chloride 0.9% 19.8 ML IV SCH (09:45)
[2022-12-09] MEDS ORDERED: Lidocaine 1% 50 ML MDV ONE (10:54)
[2022-12-09] MEDS ORDERED: Meropenem 500 MG SDV ONE (10:54)
[2022-12-09] MEDS ORDERED: Bupivacaine 0.5%/EPINEPHrine 1:200,000 50 ML MDV ONE (10:54)
[2022-12-09] MEDS ORDERED: Lidocaine 2% Jelly 10 ML Urojet ONE (11:21)
[2022-12-09] MEDS ORDERED: Sodium Chloride 0.9% 500 ML ONE (12:09)
[2022-12-09] MEDS ORDERED: Linezolid 600 MG/300 ML Premix Bag IRR ONE (12:30)
[2022-12-09] MEDS ORDERED: Furosemide 20 MG/2 ML VIAL IVPUSH ONE (13:00)
[2022-12-09] MEDS: Linezolid 600 MG in Premix Bag 1 BAG IV SCH (13:02)
[2022-12-09] MEDS ORDERED: HYDROmorphone 0.5 MG/0.5 ML Syringe IVPUSH PRN (14:47)
[2022-12-09] MEDS ORDERED: HYDROmorphone 1 MG/ML Syringe IV PRN (14:48)
[2022-12-09] MEDS ORDERED: Ondansetron 4 MG/2 ML SDV IVPUSH PRN (14:48)
[2022-12-09] MEDS: oxyCODONE 5 MG Tab PO PRN ×2 (17:08→20:41)
[2022-12-09] MEDS ORDERED: Furosemide 20 MG/2 ML VIAL IV ONE (18:45)
[2022-12-10] MEDS: oxyCODONE 5 MG Tab PO PRN ×4 (00:36→19:56)
[2022-12-10] MEDS: Linezolid 600 MG in Premix Bag 1 BAG IV SCH ×2 (00:36→14:11)
[2022-12-10] MEDS: Dextrose 5%-0.9% NaCl 1,000 ML IV SCH ×3 (00:36→21:50)
[2022-12-10 04:38] LABS: ESTIMATED GFR 99 mL/min (>60)
[2022-12-10] MEDS: Potassium Chloride 10 MEQ in Premix Bag 1 BAG IV SCH ×8 (05:52→14:09)
[2022-12-10] MEDS ORDERED: Furosemide 20 MG/2 ML VIAL IVPUSH ONE ×2 (07:30→16:00)
[2022-12-10] MEDS: Pantoprazole 40 MG Tab.CR PO SCH (07:43)
[2022-12-10] MEDS ORDERED: Gabapentin 300 MG Cap PO SCH (09:00)
[2022-12-10] MEDS: DULoxetine 30 MG Cap PO SCH (09:12)
[2022-12-10] MEDS: Aspirin 325 MG Tab.EC PO SCH (09:13)
[2022-12-10] MEDS: Potassium Chloride 20 MEQ Tab.ER PO SCH (09:13)
[2022-12-10] MEDS: Oxybutynin 5 MG Tab PO SCH (09:14)
[2022-12-10] MEDS: Multivitamins with Iron/Calcium/Folic Acid/Minerals Tab PO SCH (09:14)
[2022-12-10] MEDS: Ibuprofen 600 MG Tab PO SCH ×3 (09:15→21:23)
[2022-12-10] MEDS: Albumin Human 25 GM in Premix Bag 1 BAG IV SCH ×2 (09:18→15:36)
[2022-12-10] MEDS: Bisacodyl 5 MG Tab PO SCH (18:15)
[2022-12-10] MEDS: Magnesium Sulfate/Water 2 GM in Premix Bag 1 BAG IV SCH ×2 (18:15→21:23)
[2022-12-10] MEDS: Docusate Sodium 100 MG Cap PO SCH ×2 (18:15→20:26)
[2022-12-11] MEDS: Linezolid 600 MG in Premix Bag 1 BAG IV SCH (01:01)
[2022-12-11] MEDS: oxyCODONE 5 MG Tab PO PRN ×2 (02:07→11:33)
[2022-12-11] MEDS: Magnesium Sulfate/Water 2 GM in Premix Bag 1 BAG IV SCH ×6 (02:10→20:53)
[2022-12-11] MEDS: Ibuprofen 600 MG Tab PO SCH ×4 (04:27→21:01)
[2022-12-11] MEDS: Bisacodyl 5 MG Tab PO SCH ×2 (04:49→16:26)
[2022-12-11 05:04] LABS: ESTIMATED GFR 110 mL/min (>60)
[2022-12-11] MEDS ORDERED: POTASSIUM CHLORIDE IV SCH (06:00)
[2022-12-11] MEDS: Potassium Chloride 10 MEQ in Premix Bag 1 BAG IV SCH ×6 (06:02→11:36)
[2022-12-11] MEDS: Pantoprazole 40 MG Tab.CR PO SCH (07:11)
[2022-12-11] MEDS: Albumin Human 25 GM in Premix Bag 1 BAG IV SCH ×2 (08:19→13:43)
[2022-12-11] MEDS: Multivitamins with Iron/Calcium/Folic Acid/Minerals Tab PO SCH (08:22)
[2022-12-11] MEDS: Docusate Sodium 100 MG Cap PO SCH ×2 (08:22→20:53)
[2022-12-11] MEDS: Oxybutynin 5 MG Tab PO SCH (08:22)
[2022-12-11] MEDS: DULoxetine 30 MG Cap PO SCH (08:22)
[2022-12-11] MEDS: Aspirin 325 MG Tab.EC PO SCH (08:22)
[2022-12-11] MEDS: Potassium Chloride 20 MEQ Tab.ER PO SCH ×4 (08:22→20:52)
[2022-12-11] MEDS: Dextrose 5%-0.9% NaCl 1,000 ML IV SCH (08:57)
[2022-12-11] MEDS: Potassium Phos in 0.9 % NaCl 250 ML IV SCH ×3 (12:42→20:01)
[2022-12-12] MEDS: Magnesium Sulfate/Water 2 GM in Premix Bag 1 BAG IV SCH ×6 (02:28→21:50)
[2022-12-12] MEDS: Dextrose 5%-0.9% NaCl 1,000 ML IV SCH (03:07)
[2022-12-12] MEDS: Bisacodyl 5 MG Tab PO SCH ×2 (05:02→17:01)
[2022-12-12 05:05] LABS: ESTIMATED GFR 110 mL/min (>60)
[2022-12-12] MEDS: Ibuprofen 600 MG Tab PO SCH ×4 (05:22→21:50)
[2022-12-12] MEDS: oxyCODONE 5 MG Tab PO PRN ×2 (06:58→12:00)
[2022-12-12] MEDS: Pantoprazole 40 MG Tab.CR PO SCH (06:59)
[2022-12-12] MEDS: Docusate Sodium 100 MG Cap PO SCH ×2 (08:19→21:50)
[2022-12-12] MEDS: Furosemide 20 MG/2 ML VIAL IVPUSH SCH ×2 (08:19→16:59)
[2022-12-12] MEDS: Albumin Human 25 GM in Premix Bag 1 BAG IV SCH ×2 (08:19→13:04)
[2022-12-12] MEDS: DULoxetine 30 MG Cap PO SCH (08:19)
[2022-12-12] MEDS: Potassium Chloride 20 MEQ Tab.ER PO SCH ×4 (08:20→17:00)
[2022-12-12] MEDS: Aspirin 325 MG Tab.EC PO SCH (08:20)
[2022-12-12] MEDS: Oxybutynin 5 MG Tab PO SCH (08:20)
[2022-12-12] MEDS: Multivitamins with Iron/Calcium/Folic Acid/Minerals Tab PO SCH (08:20)
[2022-12-12] MEDS ORDERED: Sodium Chloride 0.9% 10 ML Syringe IV SCH (09:00)
[2022-12-13] MEDS: Magnesium Sulfate/Water 2 GM in Premix Bag 1 BAG IV SCH ×3 (01:37→09:20)
[2022-12-13] MEDS: Ibuprofen 600 MG Tab PO SCH ×3 (05:13→09:56)
[2022-12-13] MEDS: Bisacodyl 5 MG Tab PO SCH (05:14)
[2022-12-13 06:53] VITALS: BP 127/62; PULSE 74
[2022-12-13] MEDS: Pantoprazole 40 MG Tab.CR PO SCH (06:58)
[2022-12-13] MEDS: oxyCODONE 5 MG Tab PO PRN (06:59)
[2022-12-13] MEDS: Oxybutynin 5 MG Tab PO SCH ×2 (09:20→09:57)
[2022-12-13] MEDS: Docusate Sodium 100 MG Cap PO SCH (09:20)
[2022-12-13] MEDS: Multivitamins with Iron/Calcium/Folic Acid/Minerals Tab PO SCH ×2 (09:20→09:56)
[2022-12-13] MEDS: DULoxetine 30 MG Cap PO SCH ×2 (09:20→09:55)
[2022-12-13] MEDS: Potassium Chloride 20 MEQ Tab.ER PO SCH ×2 (09:20→09:57)
[2022-12-13] MEDS: Aspirin 325 MG Tab.EC PO SCH ×2 (09:20→09:56)
== END 2022-12-13 10:17 | disposition home or self-care (01) | DRG 406 ==
LOC: JP.SDS 08:30 → JP.MS 12:45
PROVIDERS: ADMIT Surgery; ATTEND Surgery
PROC: 0W1G0JW Bypass Peritoneal Cavity to Upper Vein with Synthetic Substitute, Open Approach (ICD-10-PCS; principal; 2022-12-09)
PROC: 0T9B70Z Drainage of Bladder with Drainage Device, Via Natural or Artificial Opening (ICD-10-PCS; principal; 2022-12-09)
PROC: 0JHT0YZ Insertion of Other Device into Trunk Subcutaneous Tissue and Fascia, Open Approach (ICD-10-PCS; principal; 2022-12-09)
DX: K70.31 Alcoholic cirrhosis of liver with ascites (principal); E46 Unspecified protein-calorie malnutrition; N35.919 Unspecified urethral stricture, male, unspecified site; I10 Essential (primary) hypertension; D63.8 Anemia in other chronic diseases classified elsewhere; E87.6 Hypokalemia; R56.9 Unspecified convulsions; E86.0 Dehydration; Z68.24 Body mass index [BMI] 24.0-24.9, adult
CPT/HCPCS: 36415; 80048; 80053; 82140; 83735; 83880; 84100; 85025; 85027; 85379; 85610; 85730; 86850; 86900; 86901; 88112; 88305; A9270-GY; J0330; J1100; J1170; J1642; J1940; J2001; J2020; J2185; J2405; J2704; J2710; J3010; J3475; J3480; J3490; J7040; P9047

== ENCOUNTER 2023-03-01 12:34 | Emergency (ER) | payer OTHER, MEDICARE ==
[2023-03-01] MEDS ORDERED: Potassium Chloride 20 MEQ Tab.ER PO ONE ×2 (13:11→18:46)
[2023-03-01] MEDS ORDERED: Sodium Chloride 0.9% 1,000 ML IV ONE (13:13)
[2023-03-01 13:29] LABS: BASOPHILS ABSOLUTE AUTO 0.06 K/uL (0.00-0.10); BASOPHILS PERCENT AUTO 0.5 % (0.1-1.3); EOSINOPHILS ABSOLUTE AUTO 0.09 K/uL (0.00-0.40); EOSINOPHILS PERCENT AUTO 0.8 % (0.0-5.4); HEMATOCRIT 23.5 % (38.4-49.7); HEMOGLOBIN 8.7 g/dL (12.9-16.9); IMMATURE GRAN PERCENT AUTO 0.9 % (0.0-0.7); LYMPHOCYTES ABSOLUTE AUTO 1.31 K/uL (0.8-3.3); LYMPHOCYTES PERCENT AUTO 11.2 % (11.4-47.7); MEAN CORPUSCULAR HEMOGLOBIN 33.6 pg (31.6-35.5); MEAN CORPUSCULAR VOLUME 90.7 fL (81.4-99.0); MONOCYTES ABSOLUTE AUTO 0.97 K/uL (0.20-0.90); MONOCYTES PERCENT AUTO 8.3 % (3.3-12.6); NEUTROPHILS ABSOLUTE AUTO 9.19 K/uL (1.0-7.6); NEUTROPHILS PERCENT AUTO 78.3 % (40.0-78.1); PLATELET COUNT,PLT 143 K/uL (130-375); RED BLOOD CELL COUNT 2.59 M/uL (4.14-5.76); WHITE BLOOD CELL COUNT,WBC 11.7 K/uL (3.2-11.0)
[2023-03-01 13:49] LABS: A/G RATIO 0.3 (1.2-2.2); ALANINE AMINOTRANSFERASE,ALT 36 U/L (12-78); ALBUMIN 1.6 g/dL (3.4-5.0); ALKALINE PHOSPHATASE 420 U/L (46-116); ASPARTATE AMNIOTRANSFERASE,AST 109 U/L (15-37); BLOOD UREA NITROGEN,BUN 3 mg/dL (7-18); CALCIUM 7.4 mg/dL (8.5-10.1); CARBON DIOXIDE,CO2 22 mmol/L (21-32); CREATININE 0.8 mg/dL (0.8-1.3); EST CRCL DRUG DOSING (CG) 82.69 mL/min; ESTIMATED GFR 95 mL/min (>60); GLUCOSE RANDOM 99 mg/dL (74-106); PROTEIN TOTAL,TP 6.7 g/dL (6.4-8.2)
[2023-03-01 14:04] LABS: ANION GAP 16.9 mmol/L (5.0-14.0); CHLORIDE,CL 88 mmol/L (100-108); POTASSIUM,K 1.9 mmol/L (3.6-5.2); SODIUM,NA 125 mmol/L (140-148)
[2023-03-01] MEDS ORDERED: Magnesium Oxide 400 MG Tab PO ONE ×2 (14:57→18:46)
[2023-03-01 16:40] LABS: CALCIUM 7.6 mg/dL (8.5-10.1); CREATININE 0.8 mg/dL (0.8-1.3); EST CRCL DRUG DOSING (CG) 82.69 mL/min
[2023-03-01 16:47] LABS: ANION GAP 13.1 mmol/L (5.0-14.0); POTASSIUM,K 2.1 mmol/L (3.6-5.2)
[2023-03-01] MEDS ORDERED: NS with KCl 40mEq 1,000 ML IV SCH (17:00)
[2023-03-01 22:22] LABS: CALCIUM 7.3 mg/dL (8.5-10.1); CREATININE 0.8 mg/dL (0.8-1.3); EST CRCL DRUG DOSING (CG) 82.69 mL/min; MAGNESIUM 1.1 mg/dL (1.8-2.4)
[2023-03-01 22:27] LABS: ANION GAP 11.8 mmol/L (5.0-14.0); POTASSIUM,K 2.8 mmol/L (3.6-5.2)
[2023-03-01] MEDS ORDERED: Potassium Chloride 10 MEQ in Premix Bag 1 BAG IV ONE ×6 (22:30→22:33)
[2023-03-01] MEDS ORDERED: LORazepam 1 MG Tab PO SCH (22:30)
[2023-03-01] MEDS ORDERED: Magnesium Sulfate/Water 2 GM in Premix Bag 1 BAG IV ONE (22:34)
[2023-03-02 04:54] LABS: MAGNESIUM 1.4 mg/dL (1.8-2.4); POTASSIUM,K 3.1 mmol/L (3.6-5.2)
[2023-03-02] MEDS ORDERED: Potassium Chloride 10 MEQ in Premix Bag 1 BAG IV ONE ×4 (05:11)
[2023-03-02] MEDS ORDERED: Potassium Chloride 20 MEQ Tab.ER PO ONE (08:33)
[2023-03-02] MEDS ORDERED: Magnesium Oxide 400 MG Tab PO ONE (08:33)
[2023-03-02 10:27] VITALS: BP 131/72; PULSE 78
== END 2023-03-02 11:27 | disposition home or self-care (01) ==
LOC: JP.ED 12:34
DX: E87.6 Hypokalemia (principal); E87.1 Hypo-osmolality and hyponatremia; E83.42 Hypomagnesemia; I10 Essential (primary) hypertension; K21.9 Gastro-esophageal reflux disease without esophagitis; F17.210 Nicotine dependence, cigarettes, uncomplicated; Z79.899 Other long term (current) drug therapy; Z79.82 Long term (current) use of aspirin
CPT/HCPCS: 36415; 80048; 80053; 83735; 84132; 85025; 93005; 96361; 96365; 96366; 96367; 96368; 99285; A9270; J3475; J3480; J7030

== ENCOUNTER 2023-04-21 14:23 | Emergency (ER) | payer MEDICARE ==
[2023-04-21] MEDS ORDERED: Sodium Chloride 0.9% 500 ML IV ONE (14:34)
[2023-04-21] MEDS ORDERED: cefTRIAXone 2 GM in Sodium Chloride 0.9% 50 ML IV ONE ×2 (14:41→14:50)
[2023-04-21 14:58] LABS: HEMATOCRIT 23.7 % (38.4-49.7); HEMOGLOBIN 8.3 g/dL (12.9-16.9); MEAN CORPUSCULAR HEMOGLOBIN 31.7 pg (31.6-35.5); MEAN CORPUSCULAR VOLUME 90.5 fL (81.4-99.0); PLATELET COUNT,PLT 119 K/uL (130-375); RED BLOOD CELL COUNT 2.62 M/uL (4.14-5.76)
[2023-04-21 14:59] LABS: BASE EXCESS VENOUS -6.6 mm/L; BICARBONATE,VENOUS 16.8 mmol/L; CARBOXYHEMOGLOBIN 3.1 % (0.0-1.6); METHEMOGLOBIN 0.8 %; O2 SATURATION VENOUS 39.6; OXYHEMOGLOBIN 38.1 %; PCO2 VENOUS 27.7 mm/Hg; PH,VENOUS 7.401 (7.350-7.450); TOTAL HEMOGLOBIN 8.9 g/dL (13.5-18.0)
[2023-04-21 15:01] LABS: PO2 VENOUS 31.3 mm/Hg
[2023-04-21 15:23] LABS: A/G RATIO 0.2 (1.2-2.2); ALANINE AMINOTRANSFERASE,ALT 28 U/L (12-78); ALBUMIN 1.3 g/dL (3.4-5.0); ALKALINE PHOSPHATASE 246 U/L (46-116); ASPARTATE AMNIOTRANSFERASE,AST 68 U/L (15-37); BLOOD UREA NITROGEN,BUN 9 mg/dL (7-18); C-REACTIVE PROTEIN 2.43 mg/dL (0.0-0.3); CALCIUM 7.7 mg/dL (8.5-10.1); CARBON DIOXIDE,CO2 18 mmol/L (21-32); CHLORIDE,CL 99 mmol/L (100-108); CREATININE 0.9 mg/dL (0.8-1.3); EST CRCL DRUG DOSING (CG) 64.42 mL/min; ESTIMATED GFR 91 mL/min (>60); GLUCOSE RANDOM 78 mg/dL (74-106); POTASSIUM,K 3.7 mmol/L (3.6-5.2); PROTEIN TOTAL,TP 7.1 g/dL (6.4-8.2); PROTHROMBIN TIME 19.7 sec (9.2-10.6); SODIUM,NA 129 mmol/L (140-148)
[2023-04-21 15:26] LABS: ANION GAP 15.7 mmol/L (5.0-14.0)
[2023-04-21 15:32] LABS: LACTIC ACID 6.3 mmol/L (0.4-2.0)
[2023-04-21 15:34] LABS: BAND PERCENT MAN 10 % (5-11); LYMPHOCYTES ABSOLUTE MAN 0.88 K/uL (0.8-3.3); LYMPHOCYTES PERCENT MAN 8 % (24-44); MONOCYTES ABSOLUTE MAN 0.22 K/uL (0.20-0.90); MONOCYTES PERCENT MAN 2 % (2-6); SEG NEUTROPHILS PERCENT MAN 80 % (36-66)
[2023-04-21] MEDS ORDERED: Sodium Chloride 0.9% 1,000 ML IV ONE (15:55)
[2023-04-21] MEDS ORDERED: Pantoprazole 40 MG Vial IVPUSH ONE (16:04)
[2023-04-21 17:25] LABS: APPEARANCE,URINE SLIGHTLY CLOUDY (CLEAR); BILIRUBIN,URINE SMALL (NEGATIVE); COLOR,URINE YELLOW (YELLOW); GLUCOSE,URINE NEGATIVE (NEGATIVE); KETONES,URINE NEGATIVE (NEGATIVE); LEUKOCYTE ESTERASE,URINE NEGATIVE (NEGATIVE); NITRITE,URINE NEGATIVE (NEGATIVE); OCCULT BLOOD,URINE NEGATIVE (NEGATIVE); PH,URINE 6.5 (5.0-8.0); PROTEIN,URINE NEGATIVE (NEGATIVE); UROBILINOGEN,URINE 0.2 EU/dL (0.2-1.0)
[2023-04-21 17:30] LABS: AMORPHOUS SEDIMENT,URINE NOT SEEN; BACTERIA,URINE FEW; EPITHELIAL CELLS,URINE NOT SEEN; MUCUS,URINE NOT SEEN; RBC,URINE 0-5 (0-5); WBC,URINE 0-5 (0-5)
[2023-04-21 17:31] LABS: AMPHETAMINES SCREEN, URINE NEGATIVE (NEGATIVE); BARBITURATE SCREEN,URINE NEGATIVE (NEGATIVE); BENZODIAZEPINES SCREEN,URINE NEGATIVE (NEGATIVE); METHADONE SCREEN, URINE NEGATIVE (NEGATIVE); METHAMPHETAMINES SCREEN, URINE NEGATIVE (NEGATIVE); OXYCODONE SCREEN,URINE NEGATIVE (NEGATIVE); PROPOXYPHENE SCREEN,URINE NEGATIVE (NEGATIVE); THC SCREEN,URINE 50 NG/ML PRESUMPTIVE POSITIVE (NEGATIVE)
[2023-04-21] MEDS ORDERED: Norepinephrine Bit/D5W Premix 4 MG in Premix Bag 1 BAG IV SCH (17:45)
[2023-04-21 19:23] VITALS: BP 97/41; PULSE 81
== END 2023-04-21 19:55 ==
LOC: JP.ED 14:23
DX: A41.9 Sepsis, unspecified organism (principal); D64.9 Anemia, unspecified; E88.09 Other disorders of plasma-protein metabolism, not elsewhere classified; E87.1 Hypo-osmolality and hyponatremia; E87.20 Acidosis, unspecified; I95.9 Hypotension, unspecified; K72.90 Hepatic failure, unspecified without coma; G62.9 Polyneuropathy, unspecified; I10 Essential (primary) hypertension; K21.9 Gastro-esophageal reflux disease without esophagitis; Z79.82 Long term (current) use of aspirin; Z79.01 Long term (current) use of anticoagulants; Z79.899 Other long term (current) drug therapy
CPT/HCPCS: 36415; 71045; 80053; 80305; 80307; 81001; 82140; 82803; 83605; 84145; 85025; 85610; 85730; 86140; 86850; 86900; 86901; 87040; 87077; 87186; 96365; 96366; 96367; 96375; 99285; C9113; J0696; J3370; J3490; J7030; J7040; J7050; U0002